=== PATIENT | female | born 1960 | race Caucasian/White ===

== ENCOUNTER 2016-10-14 09:49 | Emergency (ER) | payer BC, OTHER ==
[~2016-10-14] VITALS: Ht 167.6 cm; Wt 85.1 kg
[~2016-10-14 09:49] MED LIST: ADDE20 PO; IBUP-238 PO; LEVO112T2 PO; METO50TA PO
[2016-10-14 09:59] VITALS: BP 154/93; PULSE 90; RESP 16; TEMP 97.7; O2SAT 100
--- NOTE | 2016-10-14 10:43 | PD ---
HPI Chief Complaint: Headache Time Seen by Provider: 10:16 Travel History International Travel<30 days: Yes Contact w/Intl Traveler<30days: [place] Traveled to: [place] Traveled to known affect area: No History of Present Illness HPI This 56-year-old female says she been feeling somewhat lethargic and having fever. She has had fever as high as 101.5. She had some headache. She had some myalgias. 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 She believes she did not always have gloves on when she was dealing with the dogs. She also had a trip to [place]. She does have a history of hypothyroidism and is on replacement therapy. [facility] Past Medical History ADD: Yes Atrial Fibrillation: Yes Integumentary: Yes (ECZEMA) Thyroid Disease: Yes Influenza Vaccination: No ?: Not Menopausal: Yes Past Surgical History Appendectomy: Yes Hysterectomy: Yes Other Surgery: Yes (spinal fusion) Social History Alcohol Use: Yes ("COUPLE TIMES PER WEEK") Tobacco Use: No Substance Use: No Allergies-Medications (Allergen,Severity, Reaction): Coded Allergies: Compazine (Unverified Allergy, Severe, 11/02/15) Latex (Unverified Allergy, Severe, 11/02/15) Reglan (Unverified Allergy, Severe, 11/02/15) Zofran (Unverified Adverse Reaction, Unknown, Headache, 11/02/15) Reported Meds & Prescriptions Reported Meds & Active Scripts Active Motrin (Ibuprofen) 800 Mg Tab 800 Mg PO TID PRN Reported Levothyroxine 112 mcg (Levothyroxine Sodium) 112 Mcg Tab 0 PO DAILY Metoprolol Tartrate 50 mg (Metoprolol Tartrate) 50 Mg Tab 50 Mg PO BID Adderall 20 mg (Dextroamphetamine/Amphetamine) 20 Mg Tab 20 Mg PO TID Review of Systems General / Constitutional: Positive: Fever, Chills Eyes: No: Diploplia, Blurred Vision HENT: Positive: Headaches, No: Vertigo Cardiovascular: No: Chest Pain or Discomfort, Palpitations Respiratory: No: Cough, Shortness of Breath Gastrointestinal: No: Nausea Genitourinary: No: Urgency, Frequency Musculoskeletal: Positive: Myalgias Skin: No Rash Neurologic: Positive: Weakness Physical Exam Narrative GENERAL: Well-developed female SKIN: Warm and dry. HEAD: Atraumatic. Normocephalic. EYES: Pupils equal and round. No scleral icterus. No injection or drainage. ENT: No nasal bleeding or discharge. Mucous membranes pink and moist. NECK: Trachea midline. No JVD. CARDIOVASCULAR: Regular rate and rhythm. No murmur appreciated. RESPIRATORY: No accessory muscle use. Clear to auscultation. Breath sounds equal bilaterally. GASTROINTESTINAL: Abdomen soft, non-tender, nondistended. Hepatic and splenic margins not palpable. MUSCULOSKELETAL: No obvious deformities. No clubbing. No cyanosis. No edema. NEUROLOGICAL: Awake and alert. No obvious cranial nerve deficits. Motor grossly within normal limits. Normal speech. PSYCHIATRIC: Appropriate mood and affect; insight and judgment normal. Data Data Last Documented VS Vital Signs Date Time Temp Pulse Resp B/P Pulse Ox O2 Delivery O2 Flow Rate FiO2 10/14/16 09:59 97.7 90 16 154/93 100 Room Air Orders Complete Blood Count With Diff (10/14/16 10:33) Comprehensive Metabolic Panel (10/14/16 10:33) Urinalysis - C+S If Indicated (10/14/16 10:33) Influenzae A/B Antigen (10/14/16 10:33) Thyroid Stimulating Hormone (10/14/16 10:34) Doxycycline (Vibramycin) (10/14/16 10:45) Micro Type In (10/14/16 11:12) Labs Laboratory Tests Test 10/14/16 10:45 White Blood Count 5.8 TH/MM3 Red Blood Count 4.59 MIL/MM3 Hemoglobin 13.5 GM/DL Hematocrit 39.3 % Mean Corpuscular Volume 85.8 FL Mean Corpuscular Hemoglobin 29.5 PG Mean Corpuscular Hemoglobin 34.4 % Concent Red Cell Distribution Width 11.9 % Platelet Count 364 TH/MM3 Mean Platelet Volume 7.8 FL Neutrophils (%) (Auto) 52.6 % Lymphocytes (%) (Auto) 34.4 % Monocytes (%) (Auto) 9.5 % Eosinophils (%) (Auto) 2.8 % Basophils (%) (Auto) 0.7 % Neutrophils # (Auto) 3.0 TH/MM3 Lymphocytes # (Auto) 2.0 TH/MM3 Monocytes # (Auto) 0.6 TH/MM3 Eosinophils # (Auto) 0.2 TH/MM3 Basophils # (Auto) 0.0 TH/MM3 CBC Comment DIFF FINAL Differential Comment Urine Collection Type CLEAN CATCH Urine Color YELLOW Urine Turbidity SLIGHT Urine pH 5.5 Urine Specific [place] 1.020 Urine Protein NEG mg/dL Urine Glucose (UA) NEG mg/dL Urine Ketones NEG mg/dL Urine Occult Blood NEG Urine Nitrite NEG Urine Bilirubin NEG Urine Leukocyte Esterase NEG Urine Squamous Epithelial > 8 /hpf Cells Urine Amorphous Sediment FEW Microscopic Urinalysis Comment CULT NOT INDICATED Urine Collection Time 145 Sodium Level 139 MEQ/L Potassium Level 4.1 MEQ/L Chloride Level 105 MEQ/L Carbon Dioxide Level 24.4 MEQ/L Anion Gap 10 MEQ/L Blood Urea Nitrogen 18 MG/DL Creatinine 0.61 MG/DL Estimat Glomerular Filtration 102 ML/MIN Rate Random Glucose 91 MG/DL Calcium Level 8.8 MG/DL Total Bilirubin 0.4 MG/DL Aspartate Amino Transf 21 U/L (AST/SGOT) Alanine Aminotransferase 21 U/L (ALT/SGPT) Alkaline Phosphatase 75 U/L Total Protein 7.3 GM/DL Albumin 3.8 GM/DL Thyroid Stimulating Hormone 0.657 uIU/ML 3rd Gen [facility] Medical Decision Making Medical Screen Exam Complete: Yes Emergency Medical Condition: Yes Medical Record Reviewed: Yes Differential Diagnosis Differential includes UTI, hypothyroidism, leptospirosis, influenza Narrative Course For leptospirosis has been ordered. Her tests for influenza is negative. Liver function tests and urinalysis are negative. Patient did have exposure to leptospirosis and recommendations are to treat pending laboratory confirmation. I will start her on doxycycline 100 twice a day Diagnosis Primary Impression: leptospirosis exposure Additional Impression: Febrile illness, acute Scripts Doxycycline Hyclate 100 Mg [id number] Mg PO BID #20 CAP Prov:Paulo Christopher MD 10/14/16 Disposition: 01 DISCHARGE HOME Condition: Stable Paulo Christopher MD Oct 14, 2016 10:43
[2016-10-14] MEDS ORDERED: DOXYCYCLINE HYCLATE 100 MG CAP PO ONE (10:45)
[2016-10-14 11:00] LABS: BASOPHIL % 0.7 % (0.0-2.0); EOSINOPHIL # 0.2 TH/MM3 (0-0.4); EOSINOPHIL % 2.8 % (0.0-4.0); HEMATOCRIT 39.3 % (35.0-46.0); HEMO FLAGS DIFF FINAL; LYMPH % 34.4 % (9.0-44.0); MEAN CELL VOLUME 85.8 FL (80.0-100.0); MEAN CORPUSCULAR HEMOGLOBIN 29.5 PG (27.0-34.0); MEAN CORPUSCULAR HGB CONC 34.4 % (32.0-36.0); MONO % 9.5 % (0.0-8.0); NEUT % 52.6 % (16.0-70.0); PLATELET COUNT 364 TH/MM3 (150-450); RED BLOOD COUNT 4.59 MIL/MM3 (4.00-5.30); RED CELL DISTRIBUTION WIDTH 11.9 % (11.6-17.2); WHITE BLOOD COUNT 5.8 TH/MM3 (4.0-11.0)
[2016-10-14 11:02] LABS: BLOOD, URINE NEG (NEG); GLUCOSE,URINE NEG (NEG); KETONE, URINE NEG (NEG); NITRITE,URINE NEG (NEG); PH, URINE 5.5 (5.0-8.5)
[2016-10-14 11:10] LABS: COMMENT (UR) CULT NOT INDICATED; COMMENT2 (UR) MUCOUS PRESENT; CULTURE IF INDICATED CULT NOT INDICATED; METHOD OF COLLECTION CLEAN CATCH; SQUAMOUS EPITHELIAL CELL URINE > 8 /hpf (0-5); URINE COLOR YELLOW (YELLW/STRAW)
[2016-10-14 11:11] LABS: CHLORIDE 105 MEQ/L (98-107); POTASSIUM 4.1 MEQ/L (3.5-5.1); SODIUM (NA) 139 MEQ/L (136-145)
[2016-10-14 11:15] LABS: ANION GAP 10 MEQ/L (5-15); BICARBONATE 24.4 MEQ/L (21.0-32.0); BLOOD UREA NITROGEN 18 MG/DL (7-18)
[2016-10-14 11:18] LABS: ALT (GPT) 21 U/L (10-53); AST (GOT) 21 U/L (15-37); GLOMERULAR FILTRATION RATE 102 ML/MIN (>89)
[2016-10-14 11:19] LABS: TOTAL BILIRUBIN ADULT 0.4 MG/DL (0.2-1.0)
[2016-10-14 11:21] LABS: ALKALINE PHOSPHATASE 75 U/L (45-117)
[2016-10-14] MEDS ORDERED: DOXY100C PO (11:48)
== END 2016-10-14 11:59 | disposition home or self-care (01) ==
LOC: PHED 09:49
DX: R51 Headache (principal); R50.9 Fever, unspecified; E03.9 Hypothyroidism, unspecified; Z20.818 Contact with and (suspected) exposure to other bacterial communicable diseases
CPT/HCPCS: 80053; 81001; 84443; 85025; 87804; 99284

== ENCOUNTER 2016-10-23 12:48 | Inpatient (IN) | payer BC, OTHER ==
[~2016-10-23] VITALS: Ht 167.6 cm; Wt 85.0 kg
[~2016-10-23 12:48] MED LIST changes: +DOXY100C PO
[2016-10-23 12:50] VITALS: BP 138/92; PULSE 107; RESP 20; TEMP 98.4; O2SAT 99
--- NOTE | 2016-10-23 14:13 | PD ---
HPI Chief Complaint: GI Complaint Time Seen by Provider: 14:06 Travel History International Travel<30 days: No Contact w/Intl Traveler<30days: No Traveled to known affect area: No History of Present Illness HPI Patient is a 56-year-old female presenting to the emergency department for evaluation of fever, chills, abdominal cramping, eye pain, headaches. 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 Patient went to [facility] in [place] on 10/14/16 due to a febrile illness, at that time leptospira IgM was sent to [facility]. Patient was started on doxycycline empirically at that time. Notified that the blood test came back borderline. Patient has been compliant with the doxycycline since that time however she states she is not getting any better she has lost 3 pounds continues to have headaches, and flulike symptoms. She went to her primary care provider's office this morning who advised her to return to the emergency department for further evaluation. [facility] Past Medical History ADD: Yes Atrial Fibrillation: Yes Integumentary: Yes (ECZEMA) Thyroid Disease: Yes ?: Not Menopausal: Yes Past Surgical History Appendectomy: Yes Hysterectomy: Yes Other Surgery: Yes (spinal fusion) Social History Alcohol Use: Yes ("COUPLE TIMES PER WEEK") Tobacco Use: No Substance Use: No Allergies-Medications (Allergen,Severity, Reaction): Coded Allergies: Compazine (Unverified Allergy, Severe, 11/02/15) Latex (Unverified Allergy, Severe, 11/02/15) Reglan (Unverified Allergy, Severe, 11/02/15) Zofran (Unverified Adverse Reaction, Unknown, Headache, 11/02/15) Reported Meds & Prescriptions Reported Meds & Active Scripts Active Doxycycline Hyclate 100 Mg Cap 100 Mg PO BID Reported Levothyroxine (Levothyroxine Sodium) 112 Mcg Tab 112 Mcg PO DAILY Provigil (Modafinil) 200 Mg Tab 200 Mg PO DIRECTED Review of Systems Except as stated in HPI: all other systems reviewed are Neg General / Constitutional: Positive: Fever, Chills Eyes: Positive: Pain HENT: Positive: Headaches Cardiovascular: Positive: Tachycardia, No: Chest Pain or Discomfort Respiratory: No: Shortness of Breath Gastrointestinal: Positive: Nausea, Abdominal Pain, Loss of Appetite Musculoskeletal: Positive: Myalgias Neurologic: No: Focal Abnormalities Physical Exam Narrative GENERAL: Well-developed, well-nourished, alert female. Resting comfortably in no acute distress. SKIN: Warm and dry. HEAD: Atraumatic. Normocephalic. EYES: Pupils equal and round. No scleral icterus. Mild injection, no drainage. ENT: No nasal bleeding or discharge. Mucous membranes pink and moist. NECK: Trachea midline. No JVD. CARDIOVASCULAR: Tachycardic. No murmur appreciated. RESPIRATORY: No accessory muscle use. Clear to auscultation. Breath sounds equal bilaterally. GASTROINTESTINAL: Abdomen soft, tender to palpation diffusely, more so in the lower quadrants, nondistended. Hepatic and splenic margins not palpable. Positive bowel sounds. MUSCULOSKELETAL: No obvious deformities. No clubbing. No cyanosis. No edema. NEUROLOGICAL: Awake and alert. No obvious cranial nerve deficits. Motor grossly within normal limits. Normal speech. PSYCHIATRIC: Appropriate mood and affect; insight and judgment normal. Data Data Last Documented VS Vital Signs Date Time Temp Pulse Resp B/P Pulse Ox O2 Delivery O2 Flow Rate FiO2 10/23/16 17:04 98.7 94 20 136/99 99 Room Air Orders Electrocardiogram (10/23/16 14:05) Complete Blood Count With Diff (10/23/16 14:05) Comprehensive Metabolic Panel (10/23/16 14:05) Prothrombin Time / Inr (Pt) (10/23/16 14:05) Act Partial Throm Time (Ptt) (10/23/16 14:05) Lactic Acid Sepsis Protocol (10/23/16 14:05) Magnesium (Mg) (10/23/16 14:05) Ckmb (Isoenzyme) Profile (10/23/16 14:05) Troponin I (10/23/16 14:05) Urinalysis - C+S If Indicated (10/23/16 14:05) Blood Culture (10/23/16 14:05) Chest, Single Ap (10/23/16 ) Sodium Chlor 0.9% 1000 Ml Inj (Ns 1000 M (10/23/16 17:45) Ketorolac Inj (Toradol Inj) (10/23/16 17:45) Diet Regular Basic (10/23/16 Dinner) Vital Signs (Adult) ADELAIDA.Q4H (10/23/16 17:52) Acetaminophen (Tylenol) (10/23/16 18:00) Vascular Access Team Consult PRN (10/23/16 18:06) Admit Order (Ed Use Only) (10/23/16 18:13) Penicillin G Sodium Inj (Penicillin G So (10/24/16 00:00) Consult Infectious Disease (10/23/16 ) Levothyroxine (Synthroid) (10/24/16 06:00) Vascular Poc Ultrasound (10/23/16 ) (Hub Use Only)Inp Phy Cons/Ref (10/23/16 ) Admit To Inpatient (10/23/16 ) Vital Signs (Adult) Q4H (10/23/16 18:36) Activity Oob With Assistance (10/23/16 18:36) Sodium Chloride 0.9% Flush (Ns Flush) (10/23/16 18:45) Sodium Chloride 0.9% Flush (Ns Flush) (10/23/16 21:00) Basic Metabolic Panel (Bmp) (10/24/16 06:00) Complete Blood Count With Diff (10/24/16 06:00) Scd Bilateral/Knee High ADELAIDA.BID (10/23/16 18:36) Naloxone Inj (Narcan Inj) (10/23/16 18:45) Inpatient Certification (10/23/16 ) Aspirin Ec (Ecotrin Ec) (10/24/16 09:00) Penicillin G Potassium Inj (Pfizerpen-G (10/23/16 19:07) Labs Laboratory Tests Test 10/23/16 14:35 White Blood Count 5.7 TH/MM3 Red Blood Count 5.15 MIL/MM3 Hemoglobin 15.1 GM/DL Hematocrit 44.6 % Mean Corpuscular Volume 86.7 FL Mean Corpuscular Hemoglobin 29.3 PG Mean Corpuscular Hemoglobin 33.8 % Concent Red Cell Distribution Width 12.8 % Platelet Count 353 TH/MM3 Mean Platelet Volume 7.7 FL Neutrophils (%) (Auto) 61.0 % Lymphocytes (%) (Auto) 27.6 % Monocytes (%) (Auto) 8.9 % Eosinophils (%) (Auto) 1.2 % Basophils (%) (Auto) 1.3 % Neutrophils # (Auto) 3.5 TH/MM3 Lymphocytes # (Auto) 1.6 TH/MM3 Monocytes # (Auto) 0.5 TH/MM3 Eosinophils # (Auto) 0.1 TH/MM3 Basophils # (Auto) 0.1 TH/MM3 CBC Comment DIFF FINAL Differential Comment Sodium Level 141 MEQ/L Potassium Level 4.1 MEQ/L Chloride Level 104 MEQ/L Carbon Dioxide Level 24.1 MEQ/L Anion Gap 13 MEQ/L Blood Urea Nitrogen 12 MG/DL Creatinine 0.66 MG/DL Estimat Glomerular Filtration 93 ML/MIN Rate Random Glucose 91 MG/DL Lactic Acid Level 0.9 mmol/L Calcium Level 9.5 MG/DL Magnesium Level 1.9 MG/DL Total Bilirubin 0.4 MG/DL Aspartate Amino Transf 17 U/L (AST/SGOT) Alanine Aminotransferase 24 U/L (ALT/SGPT) Alkaline Phosphatase 87 U/L Total Creatine Kinase 64 U/L Troponin I LESS THAN 0.02 NG/ML Total Protein 7.9 GM/DL Albumin 4.3 GM/DL MDM Medical Decision Making Medical Screen Exam Complete: Yes Emergency Medical Condition: Yes Interpretation(s) Vital Signs Date Time Temp Pulse Resp B/P Pulse Ox O2 Delivery O2 Flow Rate FiO2 10/23/16 12:50 98.4 107 20 138/92 99 Differential Diagnosis Sepsis versus leptospirosis versus gastroenteritis versus viral syndrome versus other Narrative Course Patient is a 56-year-old female who presents emergency Department due to failing outpatient therapy for leptospirosis exposure. Patient did have a positive, borderline test result that was drawn on October 142016. She was started on doxycycline and has been compliant but has not had any improvement in her initial symptoms. Labs, EKG, chest x-ray ordered and pending. Workup initiated in triage, care patient will be transferred to provider with a medical bed is available. Ginger Naik Oct 23, 2016 14:13
[2016-10-23 15:15] LABS: AUTOMATED NEUTROPHIL # 3.5 TH/MM3 (1.8-7.7); BASOPHIL # 0.1 TH/MM3 (0-0.2); BASOPHIL % 1.3 % (0.0-2.0); EOSINOPHIL # 0.1 TH/MM3 (0-0.4); EOSINOPHIL % 1.2 % (0.0-4.0); HEMATOCRIT 44.6 % (35.0-46.0); HEMO FLAGS DIFF FINAL; LYMPH % 27.6 % (9.0-44.0); LYMPHOCYTE # 1.6 TH/MM3 (1.0-4.8); MEAN CELL VOLUME 86.7 FL (80.0-100.0); MEAN CORPUSCULAR HEMOGLOBIN 29.3 PG (27.0-34.0); MEAN CORPUSCULAR HGB CONC 33.8 % (32.0-36.0); MONO % 8.9 % (0.0-8.0); PLATELET COUNT 353 TH/MM3 (150-450); RED BLOOD COUNT 5.15 MIL/MM3 (4.00-5.30); RED CELL DISTRIBUTION WIDTH 12.8 % (11.6-17.2); WHITE BLOOD COUNT 5.7 TH/MM3 (4.0-11.0)
[2016-10-23 15:24] LABS: ALKALINE PHOSPHATASE 87 U/L (45-117); ALT (GPT) 24 U/L (10-53); ANION GAP 13 MEQ/L (5-15); AST (GOT) 17 U/L (15-37); BICARBONATE 24.1 MEQ/L (21.0-32.0); BLOOD UREA NITROGEN 12 MG/DL (7-18); CHLORIDE 104 MEQ/L (98-107); GLOMERULAR FILTRATION RATE 93 ML/MIN (>89); MAGNESIUM 1.9 MG/DL (1.5-2.5); POTASSIUM 4.1 MEQ/L (3.5-5.1); SODIUM (NA) 141 MEQ/L (136-145); TOTAL BILIRUBIN ADULT 0.4 MG/DL (0.2-1.0)
[2016-10-23 15:25] LABS: CREATINE KINASE 64 U/L (26-192)
--- NOTE | 2016-10-23 15:29 | RADRPT ---
EXAM DATE/TIME: 10/23/2016 14:49 [place] COMPARISON: CT PULMONARY ANGIOGRAM, December 23, 2014, 12:36. CHEST SINGLE AP, December 23, 2014, 10:42. INDICATIONS : Fever. MEDICAL HISTORY : has leptospirosis from a dog SURGICAL HISTORY : None. ENCOUNTER: Initial ACUITY: 1 day PAIN SCORE: 0/10 LOCATION: Bilateral chest FINDINGS: 2 frontal views of the chest demonstrate a normal-sized cardiac silhouette. No effusion, consolidatio n, or pneumothorax is identified. Bones and soft tissues demonstrate no acute finding. Bilateral dev st implants are present. CONCLUSION: No acute cardiopulmonary abnormality is identified. Dirk Siddiqi MD on October 23, 2016 at 15:25 Board Certified Radiologist. This report was verified electronically.
[2016-10-23] MEDS ORDERED: PROV200T11 PO (17:01)
[2016-10-23 17:04] VITALS: BP 136/99; PULSE 94; RESP 20; TEMP 98.7; O2SAT 99
[2016-10-23] MEDS ORDERED: SODIUM CHLOR 0.9% 1000 ML INJ 1,000 ML IV ONE (17:45)
[2016-10-23] MEDS ORDERED: KETOROLAC TROMETHAMINE 30 MG/ML (IVP) VIAL IV PUSH ONE (17:45)
[2016-10-23] MEDS ORDERED: PENICILLIN SODIUM IV SCH (17:45)
[2016-10-23] MEDS ORDERED: SODIUM CHLORIDE 0.9% IV SCH (17:45)
[2016-10-23] MEDS ORDERED: LEVO112T2 PO (18:14)
--- NOTE | 2016-10-23 18:40 | PD ---
Physical Exam Date Seen by Provider: Oct 23, 2016 Data Data Last Documented VS Vital Signs Date Time Temp Pulse Resp B/P Pulse Ox O2 Delivery O2 Flow Rate FiO2 10/23/16 17:04 98.7 94 20 136/99 99 Room Air Orders Electrocardiogram (10/23/16 14:05) Complete Blood Count With Diff (10/23/16 14:05) Comprehensive Metabolic Panel (10/23/16 14:05) Prothrombin Time / Inr (Pt) (10/23/16 14:05) Act Partial Throm Time (Ptt) (10/23/16 14:05) Lactic Acid Sepsis Protocol (10/23/16 14:05) Magnesium (Mg) (10/23/16 14:05) Ckmb (Isoenzyme) Profile (10/23/16 14:05) Troponin I (10/23/16 14:05) Urinalysis - C+S If Indicated (10/23/16 14:05) Blood Culture (10/23/16 14:05) Chest, Single Ap (10/23/16 ) Penicillin G Sodium Inj (Penicillin G So (10/23/16 17:45) Sodium Chlor 0.9% 1000 Ml Inj (Ns 1000 M (10/23/16 17:45) Ketorolac Inj (Toradol Inj) (10/23/16 17:45) Diet Regular Basic (10/23/16 Dinner) Vital Signs (Adult) ADELAIDA.Q4H (10/23/16 17:52) Acetaminophen (Tylenol) (10/23/16 18:00) Vascular Access Team Consult PRN (10/23/16 18:06) Admit Order (Ed Use Only) (10/23/16 18:13) Penicillin G Sodium Inj (Penicillin G So (10/24/16 00:00) Consult Infectious Disease (10/23/16 ) Levothyroxine (Synthroid) (10/24/16 06:00) Vascular Poc Ultrasound (10/23/16 ) (Hub Use Only)Inp Phy Cons/Ref (10/23/16 ) Labs Laboratory Tests Test 10/23/16 14:35 White Blood Count 5.7 TH/MM3 Red Blood Count 5.15 MIL/MM3 Hemoglobin 15.1 GM/DL Hematocrit 44.6 % Mean Corpuscular Volume 86.7 FL Mean Corpuscular Hemoglobin 29.3 PG Mean Corpuscular Hemoglobin 33.8 % Concent Red Cell Distribution Width 12.8 % Platelet Count 353 TH/MM3 Mean Platelet Volume 7.7 FL Neutrophils (%) (Auto) 61.0 % Lymphocytes (%) (Auto) 27.6 % Monocytes (%) (Auto) 8.9 % Eosinophils (%) (Auto) 1.2 % Basophils (%) (Auto) 1.3 % Neutrophils # (Auto) 3.5 TH/MM3 Lymphocytes # (Auto) 1.6 TH/MM3 Monocytes # (Auto) 0.5 TH/MM3 Eosinophils # (Auto) 0.1 TH/MM3 Basophils # (Auto) 0.1 TH/MM3 CBC Comment DIFF FINAL Differential Comment Sodium Level 141 MEQ/L Potassium Level 4.1 MEQ/L Chloride Level 104 MEQ/L Carbon Dioxide Level 24.1 MEQ/L Anion Gap 13 MEQ/L Blood Urea Nitrogen 12 MG/DL Creatinine 0.66 MG/DL Estimat Glomerular Filtration 93 ML/MIN Rate Random Glucose 91 MG/DL Lactic Acid Level 0.9 mmol/L Calcium Level 9.5 MG/DL Magnesium Level 1.9 MG/DL Total Bilirubin 0.4 MG/DL Aspartate Amino Transf 17 U/L (AST/SGOT) Alanine Aminotransferase 24 U/L (ALT/SGPT) Alkaline Phosphatase 87 U/L Total Creatine Kinase 64 U/L Troponin I LESS THAN 0.02 NG/ML Total Protein 7.9 GM/DL Albumin 4.3 GM/DL [facility] Medical Record Reviewed: Yes Supervised Visit with REED: Yes Narrative Course I, Dr. Anderson, have reviewed the advance practice practitioner's documentation and am in agreement, met with the patient face to face, made the diagnosis, and the medical decision making was done by me. 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 Patient reports that since then, she has been having headaches, nausea vomiting diarrhea and high fevers. Patient did go to [facility] and was seen on October 14, 2016 and Leptospira IgM was sent out to the [facility]. Patient reports that she was started on doxycycline and was called recently about the leptospirosis antibodies being positive. Patient reports that she is not feeling better, reports that she continues to have nausea vomiting diarrhea, myalgias and headaches. Patient did see her primary care doctor this morning, Dr. Pearson, she was told to go to the ER for admission and for treatment with IV antibiotics. Patient with symptomatic leptospirosis. Patient started on pen G1.5 million IV. Case was reviewed with Dr. Delgadillo who accepts pt to service. Physician Communication Physician Communication Case reviewed with Dr. Delgadillo who accepts pt to service Diagnosis Primary Impression: Leptospirosis Admitting Information Admitting Physician Requests: Admit Maddie Anderson DO Oct 23, 2016 18:40
--- NOTE | 2016-10-23 18:44 | HHI.HP ---
HPI Service [facility] Hospitalists Primary Care Physician Unknown Admission Diagnosis Leptospirosis Diagnoses: Chief Complaint: diarrhea, abdominal cramps, eye pain, fevers not improved with doxycycline PO Travel History International Travel<30 Days: Yes Contact w/Intl Traveler <30 Da: Yes Name of Country Traveled to: [place] Traveled to Known Affected Are: No History of Present Illness Patient is a 56-year-old female with a past medical history which includes hypothyroidism. Patient presenting to the emergency department for evaluation of fever, chills, abdominal cramping, diarrhea, lack of appetite, eye pain, headaches. 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 Patient went to [facility] in [place] on 10/14/16 due to a febrile illness, at that time leptospira IgM was sent to [facility]. Patient was started on doxycycline empirically at that time. Has taken doxycycline PO x 9 days and reports no improvement of symptoms. Patient' s IgM leptospirosis blood test resulted as borderline. Patient has lost 3 pounds in the past week, decreased appetite continued diarrhea also continues to have headaches, and polyuria. Denies dysuria. She went to her primary care provider's office this morning who advised her to return to the emergency department for further evaluation. Patient has also traveled to [place] a little over a month ago. Patient denies chest pain, shortness of breath. Review of Systems Except as stated in HPI: all other systems reviewed are Neg Past Family Social History Past Medical History Hypothyroidism Past Surgical History Appendectomy, hysterectomy, breast augmentation, benign cyst removed from right breast, spinal fusion C3 through C4 Reported Medications Doxycycline Hyclate 100 Mg Cap 100 Mg PO BID Levothyroxine (Levothyroxine Sodium) 112 Mcg Tab 112 Mcg PO DAILY Provigil (Modafinil) 200 Mg Tab 200 Mg PO DIRECTED Allergies: Coded Allergies: Compazine (Unverified Allergy, Severe, 11/02/15) Latex (Unverified Allergy, Severe, 11/02/15) Reglan (Unverified Allergy, Severe, 11/02/15) Zofran (Unverified Adverse Reaction, Unknown, Headache, 11/02/15) Active Ordered Medications Current Medications Medications (Trade) Dose Ordered Sig/[place] Route Start Time Stop Time Status Last Admin Penicillin G Sodium [id number] units/Sodium Chloride 50 ml @ 100 mls/hr ONCE IV 10/23/16 17:45 (NS 1000 ml Inj) 1,000 ml @ 999 mls/hr BOLUS ONCE IV 10/23/16 17:45 10/23/16 18:45 (Tylenol) 650 mg Q4H PRN PO 10/23/16 18:00 UNV Family History mother and father both had CVA Social History Patient reports occasional EtOH use Patient does not smoke cigarettes but does chew nicotine gum Physical Exam Vital Signs Vital Signs Date Time Temp Pulse Resp B/P Pulse Ox O2 Delivery O2 Flow Rate FiO2 10/23/16 17:04 98.7 94 20 136/99 99 Room Air 10/23/16 12:50 98.4 107 20 138/92 99 Physical Exam GENERAL: This is a well-nourished, well-developed patient, appears uncomfortable but in no apparent distress. SKIN: Bilateral upper extremity excoriations in various stages of healing and ecchymotic areas EYES: Extraocular motions intact. No scleral icterus. No injection or drainage. ENT: Nose without bleeding, purulent drainage or septal hematoma. Throat without erythema, tonsillar hypertrophy or exudate. Uvula midline. Airway patent. CARDIOVASCULAR: Regular rate and rhythm without murmurs, gallops, or rubs. RESPIRATORY: Clear to auscultation. Breath sounds equal bilaterally. No wheezes , rales, or rhonchi. GASTROINTESTINAL: Abdomen soft, non-tender, nondistended. No hepato-splenomegaly , or palpable masses. No guarding. MUSCULOSKELETAL: Extremities without clubbing, cyanosis, or edema. No joint tenderness, effusion, or edema noted. No calf tenderness. Negative Homans sign bilaterally. NEUROLOGICAL: Awake and alert. No focal deficits. Motor and sensory grossly within normal limits. Five out of 5 muscle strength in all muscle groups. Normal speech. Laboratory Laboratory Tests Test 10/23/16 14:35 White Blood Count 5.7 Red Blood Count 5.15 Hemoglobin 15.1 Hematocrit 44.6 Mean Corpuscular Volume 86.7 Mean Corpuscular Hemoglobin 29.3 Mean Corpuscular Hemoglobin 33.8 Concent Red Cell Distribution Width 12.8 Platelet Count 353 Mean Platelet Volume 7.7 Neutrophils (%) (Auto) 61.0 Lymphocytes (%) (Auto) 27.6 Monocytes (%) (Auto) 8.9 Eosinophils (%) (Auto) 1.2 Basophils (%) (Auto) 1.3 Neutrophils # (Auto) 3.5 Lymphocytes # (Auto) 1.6 Monocytes # (Auto) 0.5 Eosinophils # (Auto) 0.1 Basophils # (Auto) 0.1 CBC Comment DIFF FINAL Differential Comment Sodium Level 141 Potassium Level 4.1 Chloride Level 104 Carbon Dioxide Level 24.1 Anion Gap 13 Blood Urea Nitrogen 12 Creatinine 0.66 Estimat Glomerular Filtration 93 Rate Random Glucose 91 Lactic Acid Level 0.9 Calcium Level 9.5 Magnesium Level 1.9 Total Bilirubin 0.4 Aspartate Amino Transf 17 (AST/SGOT) Alanine Aminotransferase 24 (ALT/SGPT) Alkaline Phosphatase 87 Total Creatine Kinase 64 Troponin I LESS THAN 0.02 Total Protein 7.9 Albumin 4.3 Date/Time Procedure Status Source Growth 10/23/16 14:35 Aerobic Blood Culture Received Blood Peripheral Pending 10/23/16 14:35 Anaerobic Blood Culture Received Blood Peripheral Pending Result Diagram: 10/23/16 1435 10/23/16 1435 Imaging Last Impressions Chest X-Ray 10/23/16 0000 Signed Impressions: Service Date/Time: Sunday, October 23, 2016 14:49 - CONCLUSION: No acute cardiopulmonary abnormality is identified. Dirk Siddiqi MD Assessment and Plan Assessment and Plan Patient is a 56-year-old female with a past medical history which includes hypothyroidism. Patient presenting to the emergency department for evaluation of fever, chills, abdominal cramping, diarrhea, eye pain, headaches. 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 Patient went to [facility] in [place] on 10/14/16 due to a febrile illness, at that time leptospira IgM was sent to [facility]. Patient was started on doxycycline empirically at that time. Has taken doxycycline PO x 9 days and reports no improvement of symptoms. Patient's IgM leptospirosis blood test resulted as borderline. leptospirosis- Penicillin G IV Q6H Consult ID hypothyroidism- continue Levothyroxine 112mcg daily Headache- acetaminophen as needed Hx of paroxysmal atrial fibrillation-currently in sinus rhythm continue aspirin 162 mg daily per cardiology recommendations 2015 DVT prophylaxis with SCDs Discussed with her provider, nursing and patient Written by Tatianna Sanders, acting as scribe for Dr. Arrington on 10/23/16 at 18:43. patient was seen and examined today. presented with fever, body ache,nausea,vomiting and diarrhea. will start IV antibiotic for possible leptospirosis. ID will be consulted. rest of assessment and plan as noted above. Physician Certification 2 Midnight Certification Type: Admission for Inpatient Services Order for Inpatient Services The services are ordered in accordance with Medicare regulations or non- Medicare payer requirements, as applicable. In the case of services not specified as inpatient-only, they are appropriately provided as inpatient services in accordance with the 2-midnight benchmark. Estimated LOS (days): 3 days is the estimated time the patient will need to remain in the hospital, assuming treatment plan goals are met and no additional complications. Post-Hospital Plan: Home Tatianna Sanders Oct 23, 2016 18:44 Patito Arrington MD Oct 23, 2016 18:46
[2016-10-23] MEDS ORDERED: NALOXONE HCL 0.4 MG/ML AMP IV PRN (18:45)
[2016-10-23] MEDS ORDERED: PENICILLIN POTASSIUM IV ONE (19:07)
[2016-10-23] MEDS ORDERED: SODIUM CHLORIDE 0.9% IV ONE (19:07)
[2016-10-23 19:37] LABS: PROTHROMBIN TIME - PATIENT 11.2 SEC (9.8-11.6)
[2016-10-23] MEDS: SODIUM CHLORIDE 0.9% FLUSH 5 ML FLUSH FLUSH SCH (21:00)
[2016-10-23 21:53] VITALS: BP 118/84; PULSE 73; RESP 16; O2SAT 99
[2016-10-23 22:57] VITALS: BP 131/85; PULSE 84; RESP 18; TEMP 98.9; O2SAT 99
[2016-10-24] MEDS ORDERED: SODIUM CHLORIDE 0.9% IV SCH (01:00)
[2016-10-24] MEDS ORDERED: PENICILLIN POTASSIUM IV SCH (01:00)
[2016-10-24] MEDS: PENICILLIN POTASSIUM IV SCH ×2 (01:09→06:59)
[2016-10-24] MEDS: SODIUM CHLORIDE 0.9% IV SCH ×2 (01:09→06:59)
[2016-10-24] MEDS: SODIUM CHLORIDE 0.9% FLUSH 5 ML FLUSH FLUSH PRN ×2 (01:09→06:59)
[2016-10-24 04:00] VITALS: BP 112/64; PULSE 78; RESP 16; TEMP 96.6; O2SAT 98
[2016-10-24] MEDS: LEVOTHYROXINE SODIUM 112 MCG TAB PO SCH (05:45)
[2016-10-24] MEDS: ACETAMINOPHEN 325 MG TAB PO PRN (05:45)
[2016-10-24 06:14] LABS: AUTOMATED NEUTROPHIL # 2.6 TH/MM3 (1.8-7.7); BASOPHIL # 0.1 TH/MM3 (0-0.2); BASOPHIL % 1.3 % (0.0-2.0); EOSINOPHIL # 0.1 TH/MM3 (0-0.4); EOSINOPHIL % 2.8 % (0.0-4.0); HEMATOCRIT 37.6 % (35.0-46.0); HEMO FLAGS DIFF FINAL; LYMPH % 32.1 % (9.0-44.0); LYMPHOCYTE # 1.7 TH/MM3 (1.0-4.8); MEAN CELL VOLUME 86.6 FL (80.0-100.0); MEAN CORPUSCULAR HEMOGLOBIN 30.2 PG (27.0-34.0); MEAN CORPUSCULAR HGB CONC 34.9 % (32.0-36.0); MONO % 13.3 % (0.0-8.0); NEUT % 50.5 % (16.0-70.0); PLATELET COUNT 292 TH/MM3 (150-450); RED BLOOD COUNT 4.34 MIL/MM3 (4.00-5.30); RED CELL DISTRIBUTION WIDTH 12.7 % (11.6-17.2); WHITE BLOOD COUNT 5.2 TH/MM3 (4.0-11.0)
[2016-10-24 06:26] LABS: POTASSIUM 4.1 MEQ/L (3.5-5.1)
[2016-10-24 08:00] VITALS: BP 129/75; PULSE 74; RESP 19; TEMP 96.5; O2SAT 95
[2016-10-24] MEDS: ASPIRIN EC 81 MG TABEC PO SCH (08:03)
[2016-10-24] MEDS: SODIUM CHLORIDE 0.9% FLUSH 5 ML FLUSH FLUSH SCH ×2 (08:04→21:50)
--- NOTE | 2016-10-24 10:36 | HHI.PR ---
Subjective Remarks afebrile. says that ' she's already feeling better' . has mild diarrhea. Objective Vitals Vital Signs Date Time Temp Pulse Resp B/P Pulse Ox O2 Delivery O2 Flow Rate FiO2 10/24/16 08:00 96.5 74 19 129/75 95 10/24/16 04:00 96.6 78 16 112/64 98 10/23/16 22:57 98.9 84 18 131/85 99 10/23/16 21:53 73 16 118/84 99 Room Air 10/23/16 17:04 98.7 94 20 136/99 99 Room Air 10/23/16 12:50 98.4 107 20 138/92 99 I/O 10/23/16 10/23/16 10/23/16 10/24/16 10/24/16 10/24/16 07:00 15:00 23:00 07:00 15:00 23:00 Intake Total 340 ml Balance 340 ml Intake Oral 240 ml IV Total 100 ml # Voids 2 # Bowel Movements 0 Result Diagram: 10/24/16 0520 10/24/16 0520 Imaging Last Impressions Chest X-Ray 10/23/16 0000 Signed Impressions: Service Date/Time: Sunday, October 23, 2016 14:49 - CONCLUSION: No acute cardiopulmonary abnormality is identified. Dirk Siddiqi MD Objective Remarks GENERAL: This is a well-nourished, well-developed patient, in no apparent distress. CARDIOVASCULAR: Regular rate and regular rhythm without murmurs, gallops, or rubs. RESPIRATORY: Clear to auscultation. Breath sounds equal bilaterally. No wheezes , rales, or rhonchi. GASTROINTESTINAL: Abdomen soft, non-tender, nondistended. Normal, active bowel sounds MUSCULOSKELETAL: Extremities without clubbing, cyanosis, or edema. NEURO: Alert & Oriented x4 to person, place, time, situation. Moves all ext x4 Procedures none Medications and IVs Current Medications Penicillin G Sodium [id number] units/Sodium Chloride 50 ml @ 100 mls/hr ONCE IV ; Start 10/23/16 at 17:45; Status Cancel Sodium Chloride (NS 1000 ml Inj) 1,000 ml @ 999 mls/hr BOLUS ONCE IV Last administered on 10/23/16t 18:57; Start 10/23/16 at 17:45; Stop 10/23/16 at 18:45; Status DC Ketorolac Tromethamine (Toradol Inj) 15 mg ONCE ONCE IV PUSH Last administered on 10/23/16 18:58; Start 10/23/16 at 17:45; Stop 10/23/16 at 17:46; Status DC Acetaminophen 650 mg 650 mg Q4H PRN PO FEVER/PAIN 1-10/HEADACHE Last administered on 10/24/16 05:45; Start 10/23/16 at 18:00 Penicillin G Potassium/Sodium Chloride (Pfizerpen-G Inj/ NS Inj) 50 ml @ 100 mls/hr Q6H IV ; Start 10/24/16 at 01:00; Stop 10/24/16 at 01:00; Status DC Levothyroxine Sodium (Synthroid) 112 mcg DAILY@06 PO Last administered on 05:45; Start 10/24/16 at 06:00 IV Flush (NS Flush) 2 ml UNSCH PRN FLUSH FLUSH AFTER USING IV ACCESS Last administered on 10/24/16 06:59; Start 10/23/16 at 18:45 IV Flush (NS Flush) 2 ml BID FLUSH Last administered on 10/24/16 08:04; Start 10/23/16 at 21:00 Naloxone HCl (Narcan Inj) 0.4 mg UNSCH PRN IV SEE LABEL COMMENTS; Start at 18:45 Aspirin 162 mg 162 mg DAILY PO Last administered on 10/24/16 08:03; Start at 09:00 Penicillin G Potassium [id number] units/Sodium Chloride 50 ml @ 100 mls/hr ONCE ONCE IV Last administered on 10/23/16 20:37; Start 10/23/16 at 19:07; Stop at 19:44; Status DC Penicillin G Potassium/Sodium Chloride (Pfizerpen-G Inj/ NS Inj) 50 ml @ 100 mls/hr Q6H IV Last administered on 10/24/16 06:59; Start 10/24/16 at 01:00 A/P Assessment and Plan A/P leptospirosis- continue Penicillin G IV Q6H Consulted ID hypothyroidism- continue Levothyroxine 112mcg daily Headache-improved- acetaminophen as needed Hx of paroxysmal atrial fibrillation-currently in sinus rhythm continue aspirin 162 mg daily per cardiology recommendations 2015 DVT prophylaxis with early ambulation. Patito Arrington MD Oct 24, 2016 10:36
[2016-10-24 12:00] VITALS: BP 143/83; PULSE 73; RESP 19; TEMP 97.8; O2SAT 95
[2016-10-24] MEDS ORDERED: PILL SPLITTER OTHER PRN (12:15)
[2016-10-24] MEDS: FAMOTIDINE 20 MG TAB PO SCH ×2 (12:38→21:49)
--- NOTE | 2016-10-24 12:45 | PD.CONS ---
History of Present Illness Service Infectious disease Consult Requested By Dr Arrington Reason for Consult Evaluate patient for possible leptospirosis Primary Care Physician Dirk Aquino DO Diagnoses: History of Present Illness Patient seen and examined. Records reviewed. 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 Patient complains of fever and chills, body aches, headaches, eye pain with some photosensitivity, abdominal pain, nausea and vomiting, diarrhea, as well as poor appetite. She also has some suprapubic discomfort but really denies any kind of dysuria. 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 About 10 days after that exposure she started having symptoms. She went to the emergency room on , with the mentioned complaints, and she was prescribed doxycycline for presumed leptospirosis. Leptospiral antibody was sent, and the results came back borderline for IgM. Patient was not improving and continued to have the symptoms, so she presented back to the hospital and she has now been admitted. Since admission she has not had any fever. Her CBC and comprehensive metabolic profile were all within normal limits. Her urinalysis during the ED visit on October 14 was normal. She was started on IV penicillin. Today patient had noted some improvement. Her diarrhea has gone down to about 2 a day. Previously she had about 6-8 diarrhea per day. Infectious disease consultation is requested today for further evaluation and treatment for possible leptospirosis. Review of Systems Constitutional: COMPLAINS OF: Fever, Chills Eyes: COMPLAINS OF: Eye pain, Photosensitivity Ears, nose, mouth, throat: DENIES: Oral lesions, Throat pain, Ear Pain, Sinus Pain, Toothache Respiratory: DENIES: Cough, Shortness of breath Cardiovascular: DENIES: Chest pain, Palpitations, Syncope Gastrointestinal: COMPLAINS OF: Abdominal pain, Diarrhea, Nausea, Vomiting, DENIES: Difficulty Swallowing Genitourinary: COMPLAINS OF: Urgency, DENIES: Dysuria Musculoskeletal: COMPLAINS OF: Muscle aches, DENIES: Joint Swelling Integumentary: DENIES: Rash Neurologic: COMPLAINS OF: Headache, DENIES: Localized weakness Psychiatric: DENIES: Hallucinations Past Family Social History Allergies: Coded Allergies: Compazine (Unverified Allergy, Severe, 11/02/15) Latex (Unverified Allergy, Severe, 11/02/15) Reglan (Unverified Allergy, Severe, 11/02/15) Zofran (Unverified Adverse Reaction, Unknown, Headache, 11/02/15) Past Medical History Hypothyroidism Past Surgical History Appendectomy Hysterectomy Breast augmentation Benign cyst removed from right breast Spinal fusion C3 through C4 Active Ordered Medications Tylenol Aspirin Pepcid Synthroid Pen G Social History 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, 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 SKIN: Cool and dry. She has pain scars in her upper extremity and they are flat macules, that she states are her eczema that are healed. HEAD: Atraumatic. Normocephalic. No temporal or scalp tenderness. EYES: [place] conjunctiva. Pupils equal round and reactive. Extraocular motions intact. No scleral icterus. No conjunctival injection or drainage. ENT: Nose without bleeding, or purulent drainage. Moist oral mucosa. Throat without erythema, or exudate. NECK: Trachea midline. No JVD or lymphadenopathy. Supple, nontender, no meningeal signs. No nuchal rigidity. CARDIOVASCULAR: Regular rate and rhythm without murmurs, gallops, or rubs. RESPIRATORY: Clear to auscultation. Breath sounds equal bilaterally. No wheezes , rales, or rhonchi. GASTROINTESTINAL: Abdomen soft, nondistended, complain of mild tenderness especially on the right side. No rebound or guarding. No organomegaly. MUSCULOSKELETAL: Extremities without clubbing, cyanosis, or edema. No joint tenderness, effusion, or edema noted. No calf tenderness. Negative Homans sign bilaterally. NEUROLOGICAL: Awake and alert. Cranial nerves II through XII intact. Motor and sensory grossly within normal limits. Five out of 5 muscle strength in all muscle groups. Normal speech. PSYCH: Normal affect, calm and cooperative LINE: PIV with no evidence of infection Laboratory Laboratory Tests Test 10/23/16 10/23/16 10/24/16 14:35 18:55 05:20 White Blood Count 5.7 5.2 Red Blood Count 5.15 4.34 Hemoglobin 15.1 13.1 Hematocrit 44.6 37.6 Mean Corpuscular Volume 86.7 86.6 Mean Corpuscular Hemoglobin 29.3 30.2 Mean Corpuscular Hemoglobin 33.8 34.9 Concent Red Cell Distribution Width 12.8 12.7 Platelet Count 353 292 Mean Platelet Volume 7.7 7.8 Neutrophils (%) (Auto) 61.0 50.5 Lymphocytes (%) (Auto) 27.6 32.1 Monocytes (%) (Auto) 8.9 13.3 Eosinophils (%) (Auto) 1.2 2.8 Basophils (%) (Auto) 1.3 1.3 Neutrophils # (Auto) 3.5 2.6 Lymphocytes # (Auto) 1.6 1.7 Monocytes # (Auto) 0.5 0.7 Eosinophils # (Auto) 0.1 0.1 Basophils # (Auto) 0.1 0.1 CBC Comment DIFF FINAL DIFF FINAL Differential Comment Sodium Level 141 143 Potassium Level 4.1 4.1 Chloride Level 104 108 Carbon Dioxide Level 24.1 23.0 Anion Gap 13 12 Blood Urea Nitrogen 12 20 Creatinine 0.66 0.58 Estimat Glomerular Filtration 93 108 Rate Random Glucose 91 89 Lactic Acid Level 0.9 Calcium Level 9.5 8.7 Magnesium Level 1.9 Total Bilirubin 0.4 Aspartate Amino Transf 17 (AST/SGOT) Alanine Aminotransferase 24 (ALT/SGPT) Alkaline Phosphatase 87 Total Creatine Kinase 64 Troponin I LESS THAN 0.02 Total Protein 7.9 Albumin 4.3 Prothrombin Time 11.2 Prothromb Time International 1.0 Ratio Activated Partial 30.0 Thromboplast Time Date/Time Procedure Status Source Growth 10/23/16 14:35 Aerobic Blood Culture - Preliminary Resulted Blood Peripheral NO GROWTH IN 1 DAY 10/23/16 14:35 Anaerobic Blood Culture - Preliminary Resulted Blood Peripheral NO GROWTH IN 1 DAY Result Diagram: 10/24/16 0520 10/24/16 0520 Imaging RADIOLOGY STUDIES/FILMS REVIEWED Chest X-Ray 10/23/16 0000 Signed Impressions: Service Date/Time: Sunday, October 23, 2016 14:49 - CONCLUSION: No acute cardiopulmonary abnormality is identified. Dirk Siddiqi MD Assessment and Plan Assessment and Plan IMPRESSION Possible leptospirosis, had exposure to 2 dogs diagnosed with leptospirosis - no significant lab abnormality - has a lot of subjective symptoms RECOMMENDATION Repeat UA Repeat Leptospira Ab Continue PCN Usual duration of Rx is 7 days Will follow along with you Thank you for this consultation An Styles MD Oct 24, 2016 12:44
[2016-10-24] MEDS: KETOROLAC TROMETHAMINE 30 MG/ML (IVP) VIAL IV PUSH PRN ×2 (13:22→21:46)
[2016-10-24 13:27] LABS: BLOOD, URINE NEG (NEG); GLUCOSE,URINE NEG (NEG); KETONE, URINE NEG (NEG); NITRITE,URINE NEG (NEG); SQUAMOUS EPITHELIAL CELL URINE 9 /hpf (0-5); URINE COLOR LIGHT-YELLOW (YELLW/STRAW)
[2016-10-24 13:42] LABS: COMMENT (UR) CULT NOT INDICATED; CULTURE IF INDICATED CULT NOT INDICATED
[2016-10-24] MEDS: PENICILLIN G POTASSIUM INJ 3,000,000 UNITS in SODIUM CHLORIDE 0.9% INJ 100 ML IV SCH ×3 (13:47→22:46)
[2016-10-24 16:00] VITALS: BP 126/76; PULSE 69; RESP 18; TEMP 98.8; O2SAT 99
--- NOTE | 2016-10-24 18:45 | EKG ---
Date Performed: 10/23/2016 Time Performed: 14:51:22 PTAGE: 56 years EKG: Sinus rhythm NORMAL ECG PREVIOUS TRACING : 12/23/2014 13.30 DOCTOR: Chun Ling Interpretating Date/Time 10/24/2016 18:40:15
[2016-10-24 20:00] VITALS: BP 135/80; PULSE 77; RESP 16; TEMP 97.7; O2SAT 98
[2016-10-24] MEDS ORDERED: hydrOXYzine PAMOATE 25 MG CAP PO ONE (22:45)
[2016-10-25] VITALS: BP 124/75; PULSE 72; RESP 16; TEMP 97.6; O2SAT 98
[2016-10-25] MEDS: PENICILLIN G POTASSIUM INJ 3,000,000 UNITS in SODIUM CHLORIDE 0.9% INJ 100 ML IV SCH ×6 (02:28→20:33)
[2016-10-25] MEDS: LEVOTHYROXINE SODIUM 112 MCG TAB PO SCH (05:39)
[2016-10-25] MEDS: SODIUM CHLORIDE 0.9% FLUSH 5 ML FLUSH FLUSH SCH ×2 (07:56→20:32)
[2016-10-25] MEDS: ACETAMINOPHEN 325 MG TAB PO PRN (07:56)
[2016-10-25] MEDS: ASPIRIN EC 81 MG TABEC PO SCH (07:57)
[2016-10-25] MEDS: FAMOTIDINE 20 MG TAB PO SCH ×2 (07:57→20:33)
[2016-10-25 08:00] VITALS: BP 126/79; PULSE 73; RESP 20; TEMP 97.6; O2SAT 100
[2016-10-25] MEDS: KETOROLAC TROMETHAMINE 30 MG/ML (IVP) VIAL IV PUSH PRN ×3 (08:28→22:00)
--- NOTE | 2016-10-25 11:48 | HHI.PR ---
Subjective Remarks resting comfortably with no distress. still with mild headache but she says that overall she's improving. no fever. Objective Vitals Vital Signs Date Time Temp Pulse Resp B/P Pulse Ox O2 Delivery O2 Flow Rate FiO2 10/25/16 08:00 97.6 73 20 126/79 100 10/25/16 00:00 97.6 72 16 124/75 98 10/24/16 20:00 97.7 77 16 135/80 98 10/24/16 16:00 98.8 69 18 126/76 99 10/24/16 14:22 18 10/24/16 12:00 97.8 73 19 143/83 95 I/O 10/24/16 10/24/16 10/24/16 10/25/16 10/25/16 10/25/16 07:00 15:00 23:00 07:00 15:00 23:00 Intake Total 340 ml 675 ml 240 ml 200 ml Output Total 4 ml Balance 340 ml 675 ml 236 ml 200 ml Intake Oral 240 ml 575 ml 240 ml IV Total 100 ml 100 ml 200 ml Output Urine Total 4 ml # Voids 2 6 # Bowel Movements 0 2 1 Result Diagram: 10/24/16 0520 10/24/16 0520 Imaging Last Impressions Chest X-Ray 10/23/16 0000 Signed Impressions: Service Date/Time: Sunday, October 23, 2016 14:49 - CONCLUSION: No acute cardiopulmonary abnormality is identified. Dirk Siddiqi MD Objective Remarks GENERAL: This is a well-nourished, well-developed patient, in no apparent distress. CARDIOVASCULAR: Regular rate and regular rhythm without murmurs, gallops, or rubs. RESPIRATORY: Clear to auscultation. Breath sounds equal bilaterally. No wheezes , rales, or rhonchi. GASTROINTESTINAL: Abdomen soft, non-tender, nondistended. Normal, active bowel sounds MUSCULOSKELETAL: Extremities without clubbing, cyanosis, or edema. NEURO: Alert & Oriented x4 to person, place, time, situation. Moves all ext x4 Procedures none Medications and IVs Current Medications Penicillin G Sodium [id number] units/Sodium Chloride 50 ml @ 100 mls/hr ONCE IV ; Start 10/23/16 at 17:45; Status Cancel Sodium Chloride (NS 1000 ml Inj) 1,000 ml @ 999 mls/hr BOLUS ONCE IV Last administered on 10/23/16 18:57; Start 10/23/16 at 17:45; Stop 10/23/16 at 18:45; Status DC Ketorolac Tromethamine (Toradol Inj) 15 mg ONCE ONCE IV PUSH Last administered on 10/23/16 18:58; Start 10/23/16 at 17:45; Stop 10/23/16 at 17:46; Status DC Acetaminophen 650 mg 650 mg Q4H PRN PO FEVER/PAIN 1-10/HEADACHE Last administered on 10/25/16 07:56; Start 10/23/16 at 18:00 Penicillin G Potassium/Sodium Chloride (Pfizerpen-G Inj/ NS Inj) 50 ml @ 100 mls/hr Q6H IV ; Start 10/24/16 at 01:00; Stop 10/24/16 at 01:00; Status DC Levothyroxine Sodium (Synthroid) 112 mcg DAILY@06 PO Last administered on 05:39; Start 10/24/16 at 06:00 IV Flush (NS Flush) 2 ml UNSCH PRN FLUSH FLUSH AFTER USING IV ACCESS Last administered on 10/24/16 06:59; Start 10/23/16 at 18:45 IV Flush (NS Flush) 2 ml BID FLUSH Last administered on 10/25/16 07:56; Start 10/23/16 at 21:00 Naloxone HCl (Narcan Inj) 0.4 mg UNSCH PRN IV SEE LABEL COMMENTS; Start at 18:45 Aspirin 162 mg 162 mg DAILY PO Last administered on 10/25/16 07:57; Start at 09:00 Penicillin G Potassium [id number] units/Sodium Chloride 50 ml @ 100 mls/hr ONCE ONCE IV Last administered on 10/23/16 20:37; Start 10/23/16 at 19:07; Stop at 19:44; Status DC Penicillin G Potassium/Sodium Chloride (Pfizerpen-G Inj/ NS Inj) 50 ml @ 100 mls/hr Q6H IV Last administered on 10/24/16 06:59; Start 10/24/16 at 01:00; Stop 10/24/16 at 12:22; Status DC Famotidine (Pepcid) 10 mg BID PO Last administered on 10/25/16 07:57; Start 10/24/16 at 13:00 Miscellaneous 1 ea 1 ea UNSCH PRN OTHER SEE LABEL COMMENTS; Start 10/24/16 at 12 :15 Penicillin G Potassium/Sodium Chloride (Pfizerpen-G Inj/ NS Inj) 100 ml @ 100 mls/hr Q4H IV Last administered on 10/25/16 07:58; Start 10/24/16 at 14:00 Ketorolac Tromethamine (Toradol Inj) 15 mg Q8HR PRN IV PUSH PAIN >5 Last administered on 10/25/16 08:28; Start 10/24/16 at 13:00 Hydroxyzine Pamoate (Vistaril) 25 mg ONCE ONCE PO Last administered on 22:47; Start 10/24/16 at 22:45; Stop 10/24/16 at 22:46; Status DC A/P Assessment and Plan A/P leptospirosis- continue Penicillin G IV Q6H ID consult appreciated. hypothyroidism- continue Levothyroxine Headache-improved- acetaminophen as needed Hx of paroxysmal atrial fibrillation-currently in sinus rhythm continue aspirin 162 mg daily per cardiology recommendations 2015 DVT prophylaxis with early ambulation. Patito Arrington MD Oct 25, 2016 11:48
[2016-10-25 12:00] VITALS: BP 117/67; PULSE 68; RESP 20; TEMP 97.6; O2SAT 96
--- NOTE | 2016-10-25 13:11 | HHI.IDPN ---
Subjective Subjective Past Medical History Hypothyroidism Past Surgical History Appendectomy Hysterectomy Breast augmentation Benign cyst removed from right breast Spinal fusion C3 through C4 Allergies: Coded Allergies: Compazine (Unverified Allergy, Severe, 11/02/15) Latex (Unverified Allergy, Severe, 11/02/15) Reglan (Unverified Allergy, Severe, 11/02/15) Zofran (Unverified Adverse Reaction, Unknown, Headache, 11/02/15) Objective . Vital Signs Date Time Temp Pulse Resp B/P Pulse Ox O2 Delivery O2 Flow Rate FiO2 10/25/16 08:00 97.6 73 20 126/79 100 10/25/16 00:00 97.6 72 16 124/75 98 10/24/16 20:00 97.7 77 16 135/80 98 10/24/16 16:00 98.8 69 18 126/76 99 10/24/16 14:22 18 10/24/16 10/24/16 10/25/16 15:00 23:00 07:00 Intake Total 675 ml 240 ml 200 ml Output Total 4 ml Balance 675 ml 236 ml 200 ml Intake Oral 575 ml 240 ml IV Total 100 ml 200 ml Output Urine Total 4 ml # Voids 6 # Bowel Movements 2 1 . Laboratory Tests Test 10/23/16 10/24/16 14:35 05:20 White Blood Count 5.7 TH/MM3 5.2 TH/MM3 Red Blood Count 5.15 MIL/MM3 4.34 MIL/MM3 Hemoglobin 15.1 GM/DL 13.1 GM/DL Hematocrit 44.6 % 37.6 % Mean Corpuscular Volume 86.7 FL 86.6 FL Mean Corpuscular Hemoglobin 29.3 PG 30.2 PG Mean Corpuscular Hemoglobin 33.8 % 34.9 % Concent Red Cell Distribution Width 12.8 % 12.7 % Platelet Count 353 TH/MM3 292 TH/MM3 Mean Platelet Volume 7.7 FL 7.8 FL Neutrophils (%) (Auto) 61.0 % 50.5 % Lymphocytes (%) (Auto) 27.6 % 32.1 % Monocytes (%) (Auto) 8.9 % 13.3 % Eosinophils (%) (Auto) 1.2 % 2.8 % Basophils (%) (Auto) 1.3 % 1.3 % Neutrophils # (Auto) 3.5 TH/MM3 2.6 TH/MM3 Lymphocytes # (Auto) 1.6 TH/MM3 1.7 TH/MM3 Monocytes # (Auto) 0.5 TH/MM3 0.7 TH/MM3 Eosinophils # (Auto) 0.1 TH/MM3 0.1 TH/MM3 Basophils # (Auto) 0.1 TH/MM3 0.1 TH/MM3 CBC Comment DIFF FINAL DIFF FINAL Differential Comment Laboratory Tests Test 10/23/16 10/24/16 14:35 05:20 Sodium Level 141 MEQ/L 143 MEQ/L Potassium Level 4.1 MEQ/L 4.1 MEQ/L Chloride Level 104 MEQ/L 108 MEQ/L Carbon Dioxide Level 24.1 MEQ/L 23.0 MEQ/L Anion Gap 13 MEQ/L 12 MEQ/L Blood Urea Nitrogen 12 MG/DL 20 MG/DL Creatinine 0.66 MG/DL 0.58 MG/DL Estimat Glomerular Filtration 93 ML/MIN 108 ML/MIN Rate Random Glucose 91 MG/DL 89 MG/DL Lactic Acid Level 0.9 mmol/L Calcium Level 9.5 MG/DL 8.7 MG/DL Magnesium Level 1.9 MG/DL Total Bilirubin 0.4 MG/DL Aspartate Amino Transf 17 U/L (AST/SGOT) Alanine Aminotransferase 24 U/L (ALT/SGPT) Alkaline Phosphatase 87 U/L Total Creatine Kinase 64 U/L Troponin I LESS THAN 0.02 NG/ML Total Protein 7.9 GM/DL Albumin 4.3 GM/DL Microbiology Date/Time Procedure Status Source Growth 10/23/16 14:15 Aerobic Blood Culture - Preliminary Resulted Blood Peripheral NO GROWTH IN 2 DAYS 10/23/16 14:15 Anaerobic Blood Culture - Preliminary Resulted Blood Peripheral NO GROWTH IN 2 DAYS 10/23/16 14:35 Aerobic Blood Culture - Preliminary Resulted Blood Peripheral NO GROWTH IN 2 DAYS 10/23/16 14:35 Anaerobic Blood Culture - Preliminary Resulted Blood Peripheral NO GROWTH IN 2 DAYS Physical Exam GENERAL: awake and alert, NAD SKIN: Cool and dry. She has pain scars in her upper extremity and they are flat macules, that she states are her eczema that are healed. HEENT: [place] conjunctiva. No scleral icterus. No conjunctival injection or drainage. Nose without bleeding, or purulent drainage. Moist oral mucosa. NECK: Trachea midline. No JVD or lymphadenopathy. Supple, nontender, no meningeal signs. No nuchal rigidity. CARDIOVASCULAR: Regular rate and rhythm without murmurs, gallops, or rubs. RESPIRATORY: Clear to auscultation. Breath sounds equal bilaterally. No wheezes , rales, or rhonchi. GASTROINTESTINAL: Abdomen soft, nondistended, complain of mild tenderness especially on the right side. No rebound or guarding. No organomegaly. MUSCULOSKELETAL: Extremities without clubbing, cyanosis, or edema. No calf tenderness. NEUROLOGICAL: Non-focal PSYCH: Normal affect, calm and cooperative LINE: PIV with no evidence of infection Assessment & Plan Remarks IMPRESSION Possible leptospirosis, had exposure to 2 dogs diagnosed with leptospirosis - no significant lab abnormality - has a lot of subjective symptoms - initial Abx borderline - did not improve with Doxycycline RECOMMENDATION Repeat Leptospira Ab - done and pending Continue PCN Usual duration of Rx is 7 days, end date will be October 30 D/W patient regarding Rx - go home and get IV Abx at home with C or do outpatient IV - she wants to know how much out of pocket it will be for her and she can decide if home or outpatient - informed her IV PCN or IV Rocephin both effective: PCN needs midline or PICC, goes on a pump Rocephin is once a day, and can use PIV - cost will be determining factor for her D/W CM and she will work on it and will adjust Rx An Styles MD Oct 25, 2016 13:11
[2016-10-25] MEDS: hydrOXYzine PAMOATE 25 MG CAP PO PRN ×2 (15:53→22:00)
[2016-10-25 16:00] VITALS: BP 119/66; PULSE 71; RESP 20; TEMP 97.4; O2SAT 96
[2016-10-25 20:00] VITALS: BP 114/75; PULSE 74; RESP 20; TEMP 97.6; O2SAT 95
[2016-10-26] VITALS: BP_SYST 114; BP_SYST 142; BP_DIAS 61; BP_DIAS 65; PULSE 61; PULSE 78; RESP 18; RESP 20; TEMP 97.8; O2SAT 95; O2SAT 96
[2016-10-26] MEDS: PENICILLIN G POTASSIUM INJ 3,000,000 UNITS in SODIUM CHLORIDE 0.9% INJ 100 ML IV SCH ×4 (03:39→14:57)
[2016-10-26] MEDS: LEVOTHYROXINE SODIUM 112 MCG TAB PO SCH (06:08)
[2016-10-26 08:00] VITALS: BP 113/64; PULSE 62; RESP 18; TEMP 98.3; O2SAT 96
[2016-10-26] MEDS: ASPIRIN EC 81 MG TABEC PO SCH (08:56)
[2016-10-26] MEDS: KETOROLAC TROMETHAMINE 30 MG/ML (IVP) VIAL IV PUSH PRN ×2 (08:56→16:01)
[2016-10-26] MEDS: FAMOTIDINE 20 MG TAB PO SCH (08:56)
[2016-10-26] MEDS: SODIUM CHLORIDE 0.9% FLUSH 5 ML FLUSH FLUSH SCH (08:58)
--- NOTE | 2016-10-26 09:17 | HHI.PR ---
Subjective Remarks in no acute distress. has some nausea but overall she says that she's better. no fever. d/w the RN and no acute issues over night. Objective Vitals Vital Signs Date Time Temp Pulse Resp B/P Pulse Ox O2 Delivery O2 Flow Rate FiO2 10/26/16 08:00 98.3 62 18 113/64 96 10/26/16 00:00 97.8 61 18 114/61 96 10/25/16 20:00 97.6 74 20 114/75 95 10/25/16 16:00 97.4 71 20 119/66 96 10/25/16 12:00 97.6 68 20 117/67 96 I/O 10/25/16 10/25/16 10/25/16 10/26/16 10/26/16 10/26/16 07:00 15:00 23:00 07:00 15:00 23:00 Intake Total 200 ml 960 ml 480 ml 520 ml 120 ml Output Total 800 ml Balance 200 ml 160 ml 480 ml 520 ml 120 ml Intake Oral 960 ml 480 ml 320 ml 120 ml IV Total 200 ml 200 ml Output Urine Total 800 ml # Voids 2 2 # Bowel Movements 0 1 Result Diagram: 10/24/16 0520 10/24/16 0520 Imaging Last Impressions Chest X-Ray 10/23/16 0000 Signed Impressions: Service Date/Time: Sunday, October 23, 2016 14:49 - CONCLUSION: No acute cardiopulmonary abnormality is identified. Dirk Siddiqi MD Objective Remarks GENERAL: This is a well-nourished, well-developed patient, in no apparent distress. CARDIOVASCULAR: Regular rate and regular rhythm without murmurs, gallops, or rubs. RESPIRATORY: Clear to auscultation. Breath sounds equal bilaterally. No wheezes , rales, or rhonchi. GASTROINTESTINAL: Abdomen soft, non-tender, nondistended. Normal, active bowel sounds MUSCULOSKELETAL: Extremities without clubbing, cyanosis, or edema. NEURO: Alert & Oriented x4 to person, place, time, situation. Moves all ext x4 Procedures none Medications and IVs Current Medications Penicillin G Sodium 0400529 units/Sodium Chloride 50 ml @ 100 mls/hr ONCE IV ; Start 10/23/16 at 17:45; Status Cancel Sodium Chloride (NS 1000 ml Inj) 1,000 ml @ 999 mls/hr BOLUS ONCE IV Last administered on 10/23/16 18:57; Start 10/23/16 at 17:45; Stop 10/23/16 at 18:45; Status DC Ketorolac Tromethamine (Toradol Inj) 15 mg ONCE ONCE IV PUSH Last administered on 10/23/16 18:58; Start 10/23/16 at 17:45; Stop 10/23/16 at 17:46; Status DC Acetaminophen 650 mg 650 mg Q4H PRN PO FEVER/PAIN 1-10/HEADACHE Last administered on 10/25/16 07:56; Start 10/23/16 at 18:00 Penicillin G Potassium/Sodium Chloride (Pfizerpen-G Inj/ NS Inj) 50 ml @ 100 mls/hr Q6H IV ; Start 10/24/16 at 01:00; Stop 10/24/16 at 01:00; Status DC Levothyroxine Sodium (Synthroid) 112 mcg DAILY@06 PO Last administered on 06:08; Start 10/24/16 at 06:00 IV Flush (NS Flush) 2 ml UNSCH PRN FLUSH FLUSH AFTER USING IV ACCESS Last administered on 10/24/16 06:59; Start 10/23/16 at 18:45 IV Flush (NS Flush) 2 ml BID FLUSH Last administered on 10/26/16 08:58; Start 10/23/16 at 21:00 Naloxone HCl (Narcan Inj) 0.4 mg UNSCH PRN IV SEE LABEL COMMENTS; Start at 18:45 Aspirin 162 mg 162 mg DAILY PO Last administered on 10/26/16 08:56; Start 10/24 at 09:00 Penicillin G Potassium [id number] units/Sodium Chloride 50 ml @ 100 mls/hr ONCE ONCE IV Last administered on 10/23/16 20:37; Start 10/23/16 at 19:07; Stop at 19:44; Status DC Penicillin G Potassium/Sodium Chloride (Pfizerpen-G Inj/ NS Inj) 50 ml @ 100 mls/hr Q6H IV Last administered on 10/24/16 06:59; Start 10/24/16 at 01:00; Stop 10/24/16 at 12:22; Status DC Famotidine (Pepcid) 10 mg BID PO Last administered on 10/26/16 08:56; Start at 13:00 Miscellaneous 1 ea 1 ea UNSCH PRN OTHER SEE LABEL COMMENTS; Start 10/24/16 at 12 :15 Penicillin G Potassium/Sodium Chloride (Pfizerpen-G Inj/ NS Inj) 100 ml @ 100 mls/hr Q4H IV Last administered on 10/26/16 06:08; Start 10/24/16 at 14:00 Ketorolac Tromethamine (Toradol Inj) 15 mg Q8HR PRN IV PUSH PAIN >5 Last administered on 10/26/16 08:56; Start 10/24/16 at 13:00 Hydroxyzine Pamoate (Vistaril) 25 mg ONCE ONCE PO Last administered on 22:47; Start 10/24/16 at 22:45; Stop 10/24/16 at 22:46; Status DC Hydroxyzine Pamoate (Vistaril) 25 mg Q6H PRN PO NAUSEA Last administered on 10/25 22:00; Start 10/25/16 at 15:15 A/P Assessment and Plan A/P leptospirosis- continue Penicillin G IV Q6H ID f/u appreciated. hypothyroidism- continue Levothyroxine Headache-improved- acetaminophen as needed Hx of paroxysmal atrial fibrillation-currently in sinus rhythm continue aspirin 162 mg daily per cardiology recommendations 2015 DVT prophylaxis with early ambulation. Discharge Planning d/w the case management; working on the cost of outpatient treatment with IV antibiotic. might need to stay for the duration of therapy. Patito Arrington MD Oct 26, 2016 09:17
[2016-10-26] MEDS: SODIUM CHLORIDE 0.9% FLUSH 5 ML FLUSH FLUSH PRN (10:01)
[2016-10-26] MEDS: hydrOXYzine PAMOATE 25 MG CAP PO PRN ×2 (10:03→16:01)
--- NOTE | 2016-10-26 11:14 | HHI.FF ---
Face to Face Verification Diagnosis: (1) Leptospirosis Home Health Nursing Order: Medical education Signs/symptoms of disease process Medication education-adverse effect IV medication administration Instructions: IV access care. I have seen patient Sydney Alaniz on 10/26/16. My clinical findings support the need for the requested home health care services because: Ltd mobility - disease progression I certify that my clinical findings support that this patient is homebound because: Unsafe to leave home unassisted Patito Arrington MD Oct 26, 2016 11:14
[2016-10-26] MEDS ORDERED: ASPI81TA11 PO (11:19)
--- NOTE | 2016-10-26 11:19 | HHI.DS ---
Discharge Summary Admission Date Oct 23, 2016 at 18:14 Discharge Date: Oct 26, 2016 Admitting Diagnosis Leptospirosis (1) Leptospirosis ICD Code: A27.9 Procedures none Brief History - From Admission Patient is a 56-year-old female with a past medical history which includes hypothyroidism. Patient presenting to the emergency department for evaluation of fever, chills, abdominal cramping, diarrhea, lack of appetite, eye pain, headaches. 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 Patient went to [facility] in [place] on 10/14/16 due to a febrile illness, at that time leptospira IgM was sent to [facility]. Patient was started on doxycycline empirically at that time. Has taken doxycycline PO x 9 days and reports no improvement of symptoms. Patient' s IgM leptospirosis blood test resulted as borderline. Patient has lost 3 pounds in the past week, decreased appetite continued diarrhea also continues to have headaches, and polyuria. Denies dysuria. She went to her primary care provider's office this morning who advised her to return to the emergency department for further evaluation. Patient has also traveled to [place] a little over a month ago. Patient denies chest pain, shortness of breath. CBC/BMP: 10/24/16 0520 10/24/16 0520 Significant Findings Laboratory Tests Test 10/23/16 10/24/16 10/24/16 14:35 05:20 13:17 Monocytes (%) (Auto) 8.9 % (0.0-8.0) 13.3 % (0.0-8.0) Troponin I LESS THAN 0.02 NG/ML (0.02-0.05) Chloride Level 108 MEQ/L (98-107) Blood Urea Nitrogen 20 MG/DL (7-18) Urine Turbidity HAZY (CLEAR) Imaging Last Impressions Chest X-Ray 10/23/16 0000 Signed Impressions: Service Date/Time: Sunday, October 23, 2016 14:49 - CONCLUSION: No acute cardiopulmonary abnormality is identified. Dirk Siddiqi MD PE at Discharge GENERAL: This is a well-nourished, well-developed patient, in no apparent distress. CARDIOVASCULAR: Regular rate and regular rhythm without murmurs, gallops, or rubs. RESPIRATORY: Clear to auscultation. Breath sounds equal bilaterally. No wheezes , rales, or rhonchi. GASTROINTESTINAL: Abdomen soft, non-tender, nondistended. Normal, active bowel sounds MUSCULOSKELETAL: Extremities without clubbing, cyanosis, or edema. NEURO: Alert & Oriented x4 to person, place, time, situation. Moves all ext x4 Hospital Course leptospirosis- continue Penicillin G IV Q6H ID f/u appreciated. hypothyroidism- continue Levothyroxine Headache-improved- acetaminophen as needed Hx of paroxysmal atrial fibrillation-currently in sinus rhythm continue aspirin 162 mg daily per cardiology recommendations 2015 DVT prophylaxis with early ambulation. Pt Condition on Discharge: Good Discharge Disposition: Disch w/ Home Health Serv Discharge Time: <= 30 minutes Discharge Instructions DIET: Follow Instructions for: Heart Healthy Diet Activities you can perform: Regular-No Restrictions Follow up Referrals: PCP Follow-up New Medications: Aspirin DR (Aspirin EC) 81 Mg Tabdr 162 MG PO DAILY a-fib Days 30 Ref 0 TAB Continued Medications: Levothyroxine (Levothyroxine) 112 Mcg Tab 112 MCG PO DAILY Thyroid #30 Ref 0 TAB Modafinil (Provigil) 200 Mg Tab 200 MG PO DIRECTED Manage Daytime Sleepiness Ref 0 TAB Discontinued Medications: Doxycycline Hyclate (Doxycycline Hyclate) 100 Mg Cap 100 MG PO BID Infection #20 Patito Patel MD Oct 26, 2016 11:18
[2016-10-26 12:00] VITALS: BP 106/79; PULSE 72; RESP 20; TEMP 98; O2SAT 100
--- NOTE | 2016-10-26 15:45 | RADRPT ---
EXAM DATE/TIME: 10/26/2016 15:27 [facility] COMPARISON: CHEST SINGLE AP, October 23, 2016, 14:49. INDICATIONS : Evaluate heart and lungs post PICC line placement. MEDICAL HISTORY : None. Leptospirosis SURGICAL HISTORY : None. ENCOUNTER: Initial ACUITY: 1 day PAIN SCORE: Non-responsive. LOCATION: chest FINDINGS: A single view of the chest demonstrates placement of a right upper extremity PICC line. Tip of the PI CC line is in the superior vena cava. Lungs are main free of significant congestion or airspace disease. Heart and mediastinal structures are unremarkable. CONCLUSION: Satisfactory position a right upper extremity PICC line. No evidence of acute cardiopulmonary process. Master Best MD on October 26, 2016 at 15:43 Board Certified Radiologist. This report was verified electronically.
== END 2016-10-26 16:15 | disposition home health service (06) | DRG 869 ==
LOC: NEPA 12:48 → NETRI 12:48 → NEDA 18:14 → NEDH 22:21 → N07A 22:53
PROVIDERS: ADMIT Internal Medicine; ATTEND Internal Medicine
DX: A27.9 Leptospirosis, unspecified (principal); I48.0 Paroxysmal atrial fibrillation; E03.9 Hypothyroidism, unspecified; L30.9 Dermatitis, unspecified; Z98.1 Arthrodesis status; Z88.8 Allergy status to other drugs, medicaments and biological substances; Z91.040 Latex allergy status; Z79.82 Long term (current) use of aspirin
CPT/HCPCS: 36569; 71010; 76937; 80048; 80053; 81001; 82550; 83605; 83735; 84484; 85025; 85610; 85730; 87040; 93005; J1885; J2540; J7030; Q0177

== ENCOUNTER 2018-01-16 08:39 | Observation (INO) | payer BC ==
[~2018-01-16] VITALS: Ht 167.6 cm; Wt 72.5 kg
[2018-01-16] VITALS (7 sets, daily range): BP systolic 120–185; BP diastolic 66–104; PULSE 71–100; RESP 18–20; TEMP 96.9–98.9; O2SAT 95–99
[~2018-01-16 08:39] MED LIST changes: -ADDE20 PO; +ASPI81TA23 PO; -DOXY100C PO; -IBUP-238 PO; -METO50TA PO; +MODA1TAB31 PO
[2018-01-16] MEDS ORDERED: ESTR0.5T PO (08:51)
[2018-01-16] MEDS ORDERED: ONDANSETRON ODT 4 MG TAB PO ONE (09:45)
[2018-01-16] MEDS ORDERED: SODIUM CHLORIDE 0.9% FLUSH 10 ML FLUSH IVF PRN (09:45)
[2018-01-16] MEDS ORDERED: MORPHINE SULFATE 4 MG/ML INJ IV PUSH ONE (09:45)
--- NOTE | 2018-01-16 09:55 | PD ---
HPI Chief Complaint: Chest Pain Time Seen by Provider: 09:29 Travel History International Travel<30 days: No Contact w/Intl Traveler<30days: No Traveled to known affect area: No History of Present Illness HPI The patient was seen and examined in the presence of the nurse. This patient complains of chest pain. Location is center sternum and also some left lower chest. She describes it as a pressure. He feels like a weight on her chest. No injury. No fever. No cough. Pain started at 3:30 AM. Duration is 6 hours. Severity is moderate. It waxes and wanes. It is not exertional. [place] 2 [place] 4 [place] and has not had pain with that recently. No history of cardiac problems. Never had stress testing. No alleviating factors. No exacerbating factors. PFSH Past Medical History ADD: Yes Arthritis: No Atrial Fibrillation: Yes (with epi dosing) Autoimmune Disease: Yes Cancer: No Cardiovascular Problems: No Diabetes: No Endocrine: Yes (hypothyroidism) Gastrointestinal Disorders: No Genitourinary: No Immune Disorder: No Musculoskeletal: Yes (kicked by horse leading to c2-c4 fusion) Neurologic: No Psychiatric: No Reproductive: No Respiratory: No Integumentary: Yes (ECZEMA) Thyroid Disease: Yes Influenza Vaccination: No ?: Not Menopausal: Yes Past Surgical History Abdominal Surgery: Yes (appendectomy) Appendectomy: Yes Gynecologic Surgery: Yes (cyst removal from right breast 2013, 2008 hysterectomy) Hysterectomy: Yes Neurologic Surgery: Yes (c2-4 fusion in 2004) Other Surgery: Yes (spinal fusion) Social History Alcohol Use: Yes ("COUPLE TIMES PER WEEK") Tobacco Use: No (used to vap) Substance Use: No Allergies-Medications (Allergen,Severity, Reaction): Coded Allergies: latex (Unverified Allergy, Severe, 01/16/18) metoclopramide (Unverified Allergy, Severe, 01/16/18) prochlorperazine (Unverified Allergy, Severe, 01/16/18) ondansetron (Unverified Adverse Reaction, Unknown, Headache, 01/16/18) Reported Meds & Prescriptions Reported Meds & Active Scripts Active Reported Estradiol 0.5 Mg Tab 0.5 Mg PO DAILY Levothyroxine (Levothyroxine Sodium) 112 Mcg Tab 112 Mcg PO DAILY Provigil (Modafinil) 200 Mg Tab 200 Mg PO DIRECTED Review of Systems General / Constitutional: No: Fever Eyes: No: Visual changes HENT: No: Headaches Cardiovascular: Positive: Chest Pain or Discomfort Respiratory: No: Shortness of Breath Gastrointestinal: No: Abdominal Pain Genitourinary: No: Dysuria Musculoskeletal: No: Pain Skin: No Rash Neurologic: No: Weakness Psychiatric: No: Depression Endocrine: No: Polydipsia Hematologic/Lymphatic: No: Easy Bruising Physical Exam Narrative GENERAL: Well-nourished, well-developed patient with chest pressure. SKIN: Focused skin assessment reveals no rash and nodules. Skin is Warm and dry. HEAD: Atraumatic. Normocephalic. EYES: Pupils equal and round. No scleral icterus. No injection or drainage. ENT: No nasal bleeding or discharge. Mucous membranes pink and moist. NECK: Trachea midline. No JVD. CARDIOVASCULAR: Regular rate and rhythm. No murmur appreciated. RESPIRATORY: No accessory muscle use. Clear to auscultation. Breath sounds equal bilaterally. GASTROINTESTINAL: Abdomen soft, non-tender, nondistended. Hepatic and splenic margins not palpable. MUSCULOSKELETAL: No obvious deformities. No clubbing. No cyanosis. No edema. There is some chest wall tenderness but it is inconsistent and not convincing NEUROLOGICAL: Awake and alert. No obvious cranial nerve deficits. Motor grossly within normal limits. Normal speech. PSYCHIATRIC: Appropriate mood and affect; insight and judgment normal. Data Data Last Documented VS Vital Signs Date Time Temp Pulse Resp B/P (MAP) Pulse Ox O2 Delivery O2 Flow Rate FiO2 01/16/18 09:03 77 20 156/74 (101) Room Air 01/16/18 08:51 98 01/16/18 08:41 98.9 Orders Orders Electrocardiogram (01/16/18 09:40) Basic Metabolic Panel (Bmp) (01/16/18 09:40) Ckmb (Isoenzyme) Profile (01/16/18 09:40) Complete Blood Count With Diff (01/16/18 09:40) Magnesium (Mg) (01/16/18 09:40) Prothrombin Time / Inr (Pt) (01/16/18 09:40) Act Partial Throm Time (Ptt) (01/16/18 09:40) Troponin I (01/16/18 09:40) Chest, Single Ap (01/16/18 09:40) Ecg Monitoring (01/16/18 09:40) Iv Access Insert/Monitor (01/16/18 09:40) Oximetry (01/16/18 09:40) Morphine Inj (Morphine Inj) (01/16/18 09:45) Sodium Chloride 0.9% Flush (Ns Flush) (01/16/18 09:45) Ondansetron Odt (Zofran Odt) (01/16/18 09:45) CKMB (01/16/18:45) CKMB% (01/16/18 09:45) Labs Laboratory Tests Test 01/16/18 09:45 White Blood Count 5.9 TH/MM3 Red Blood Count 4.51 MIL/MM3 Hemoglobin 13.8 GM/DL Hematocrit 39.5 % Mean Corpuscular Volume 87.7 FL Mean Corpuscular Hemoglobin 30.5 PG Mean Corpuscular Hemoglobin Concent 34.8 % Red Cell Distribution Width 13.1 % Platelet Count 369 TH/MM3 Mean Platelet Volume 7.7 FL Neutrophils (%) (Auto) 61.0 % Lymphocytes (%) (Auto) 26.8 % Monocytes (%) (Auto) 9.1 % Eosinophils (%) (Auto) 1.8 % Basophils (%) (Auto) 1.3 % Neutrophils # (Auto) 3.6 TH/MM3 Lymphocytes # (Auto) 1.6 TH/MM3 Monocytes # (Auto) 0.5 TH/MM3 Eosinophils # (Auto) 0.1 TH/MM3 Basophils # (Auto) 0.1 TH/MM3 CBC Comment DIFF FINAL Differential Comment Prothrombin Time 10.6 SEC Prothromb Time International Ratio 1.0 RATIO Activated Partial Thromboplast Time 26.1 SEC Blood Urea Nitrogen 18 MG/DL Creatinine 0.76 MG/DL Random Glucose 88 MG/DL Calcium Level 9.2 MG/DL Magnesium Level 2.0 MG/DL Sodium Level 137 MEQ/L Potassium Level 5.0 MEQ/L Chloride Level 103 MEQ/L Carbon Dioxide Level 23.2 MEQ/L Anion Gap 11 MEQ/L Estimat Glomerular Filtration Rate 79 ML/MIN Total Creatine Kinase 168 U/L Creatine Kinase MB 1.0 NG/ML Troponin I LESS THAN 0.02 NG/ML MDM Medical Decision Making Medical Screen Exam Complete: Yes Emergency Medical Condition: Yes Medical Record Reviewed: Yes Differential Diagnosis Differential diagnosis includes AK, angina, pericarditis, pleurisy, GERD, anxiety. Narrative Course I have reviewed the patient's electronic medical record. Patient had 2 CTAs of the chest in 2014 that were both negative for PE I reviewed her EKG which is normal Extended cardiac monitoring reveals sinus rhythm without ectopy IV placed and labs sent I gave her dose of morphine and Zofran for symptom relief. She has multiple allergies listed to nausea medications. She can take Zofran and ask for it by name. She got a headache after taking it before so that is why it was listed as an allergy. We reviewed her chest x-ray which is normal She had aspirin prior to arrival General blood counts and metabolic studies and cardiac enzymes are normal Patient will be a 23 hour observation in the chest pain center in order to rule out cardiac cause of her symptoms. Diagnosis Primary Impression: Chest pain at rest Admitting Information Admitting Physician Requests: Observation Bharath Crews MD January 16, 2018 09:55
[2018-01-16 10:00] LABS: AUTOMATED NEUTROPHIL # 3.6 TH/MM3 (1.8-7.7); BASOPHIL # 0.1 TH/MM3 (0-0.2); BASOPHIL % 1.3 % (0.0-2.0); EOSINOPHIL # 0.1 TH/MM3 (0-0.4); EOSINOPHIL % 1.8 % (0.0-4.0); HEMATOCRIT 39.5 % (35.0-46.0); HEMOGLOBIN 13.8 GM/DL (11.6-15.3); LYMPH % 26.8 % (9.0-44.0); LYMPHOCYTE # 1.6 TH/MM3 (1.0-4.8); MEAN CELL VOLUME 87.7 FL (80.0-100.0); MEAN CORPUSCULAR HEMOGLOBIN 30.5 PG (27.0-34.0); MEAN CORPUSCULAR HGB CONC 34.8 % (32.0-36.0); MEAN PLATELET VOLUME 7.7 FL (7.0-11.0); MONO % 9.1 % (0.0-8.0); MONOCYTE # 0.5 TH/MM3 (0-0.9); PLATELET COUNT 369 TH/MM3 (150-450); RED BLOOD COUNT 4.51 MIL/MM3 (4.00-5.30); RED CELL DISTRIBUTION WIDTH 13.1 % (11.6-17.2); WHITE BLOOD COUNT 5.9 TH/MM3 (4.0-11.0)
--- NOTE | 2018-01-16 10:03 | RADRPT ---
EXAM DATE: 01/16/2018 9:58 AM EDT AGE/SEX: 57 years / Female INDICATIONS: Chest pain. CLINICAL DATA: This is the patient's initial encounter. Patient reports that signs and symptoms have been present for 1 day and indicates a pain score of 8/10. MEDICAL/SURGICAL HISTORY: . Leptospirosis None. COMPARISON: [facility] [place] CHEST SINGLE AP, 10/26/2016. . FINDINGS: A single AP view of the chest demonstrates the lungs to be symmetrically aerated without evidence of mass, infiltrate or effusion. The cardiomediastinal contours are unremarkable. Osseous structures a re intact. CONCLUSION: No acute cardiopulmonary disease. Electronically signed by: Aquilino Hayes MD 01/16/2018 10:02 AM EDT
[2018-01-16 10:08] LABS: PROTHROMBIN TIME - PATIENT 10.6 SEC (9.8-11.6)
[2018-01-16 10:31] LABS: BICARBONATE 23.2 MEQ/L (21.0-32.0); BLOOD UREA NITROGEN 18 MG/DL (7-18); CALCIUM 9.2 MG/DL (8.5-10.1); CHLORIDE 103 MEQ/L (98-107); CREATININE 0.76 MG/DL (0.50-1.00); GLOMERULAR FILTRATION RATE 79 ML/MIN (>89); GLUCOSE,RANDOM 88 MG/DL (74-106); SODIUM (NA) 137 MEQ/L (136-145); TROPONIN I LESS THAN 0.02 NG/ML (0.02-0.05)
[2018-01-16] MEDS ORDERED: LIDOCAINE VISCOUS 2% SOLN 15 ML UDC PO ONE (13:15)
[2018-01-16] MEDS ORDERED: ALUMINUM/MAGNESIUM/SIMETH 30 ML CUP PO ONE (13:15)
[2018-01-16 13:21] LABS: TROPONIN I LESS THAN 0.02 NG/ML (0.02-0.05)
[2018-01-16] MEDS ORDERED: DEXAMETHASONE SOD PHOS 20 MG/5 ML VIAL IV PUSH ONE (14:00)
[2018-01-16] MEDS ORDERED: ACETAMINOPHEN/HYDROcodone 325 MG/7.5 MG TAB PO PRN (14:15)
[2018-01-16] MEDS ORDERED: ACETAMINOPHEN 500 MG CPLT PO PRN (14:15)
[2018-01-16] MEDS: HYDROmorphone HCL PF 0.5 MG/0.5 ML SYRINGE IV PUSH PRN ×3 (14:20→23:05)
--- NOTE | 2018-01-16 14:36 | HHI.HP ---
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 Patient states she woke up having a dream that she was having pain and in fact was there when she awoke. Describes it as a crushing pain on the left side of her chest. Worsened when she takes in a deep breath and even more so when she lies flat. When she sits back up the pain improves. Pain has been as bad as a 10 out of 10. Currently an 8 out of 10. States IV morphine did help in the ED. But the discomfort is intensifying currently. Denies history of CAD but states she has never had a stress test. Denies any knowledge of recent illness but states she works with multiple sick contacts. She denies shortness of breath, nausea, or diaphoresis. Denies recent travel. Denies calf pain or swelling. Review of Systems General: Patient denies fevers, chills, and recent travel. HEENT: Patient denies headache, sore throat, difficulty swallowing. Cardiovascular: Has the chest discomfort as mentioned above. Denies sensation of heart beating rapidly or irregularly. No syncope. Denies diaphoresis. Respiratory: Denies shortness of breath but states that discomfort is worsened with deep inspiration and lying flat.. Denies coughing wheezing or hemoptysis. GI: Patient denies nausea, vomiting, diarrhea, abdominal pain, bloody stools. Musculoskeletal: Patient denies joint pain or edema. Denies calf pain or edema. Neurovascular: Patient denies numbness, tingling, weakness in extremities. Denies headache. Endocrine: Denies polyuria and polydipsia. Hematologic: Denies easy bruising. Skin: Denies rash or itching. Past Family Social History Allergies: Coded Allergies: latex (Unverified Allergy, Severe, 01/16/18) metoclopramide (Unverified Allergy, Severe, 01/16/18) prochlorperazine (Unverified Allergy, Severe, 01/16/18) ondansetron (Unverified Adverse Reaction, Unknown, Headache, 01/16/18) Past Medical History Hypothyroidism. She had one episode of atrial fibrillation in 2014 that was related to treatment of anaphylaxis. Hyperlipidemia but trying diet control. Currently no medication for it. Denies hypertension, diabetes, and known CAD. Past Surgical History Cervical fusion. Appendectomy and hysterectomy. Reported Medications Reported Meds & Active Scripts Active Reported Estradiol 0.5 Mg Tab 0.5 Mg PO DAILY Levothyroxine (Levothyroxine Sodium) 112 Mcg Tab 112 Mcg PO DAILY Provigil (Modafinil) 200 Mg Tab 200 Mg PO DIRECTED Active Ordered Medications Current Medications Medications (Trade) Dose Ordered Sig/[place] Route Start Time Stop Time Status Last Admin (NS Flush) 2 ml UNSCH PRN IVF 01/16/18 09:45 01/16/18 09:49 (Decadron Inj) 4 mg Q6HR IV PUSH 01/16/18 18:00 (Dilaudid Pf Inj) 0.5 mg Q4H PRN IV PUSH 01/16/18 14:15 01/16/18 14:20 (Tylenol) 500 mg Q4H PRN PO 01/16/18 14:15 ([place] 7.5-325 Mg) 1 tab Q4H PRN PO 01/16/18 14:15 (Aspirin) 325 mg DAILY PO 01/17/18 09:00 (Synthroid) 112 mcg DAILY@0600 PO 01/17/18 06:00 Family History States that her mother had stents she believes. Her father had CVAs. Social History Non-smoker. Occasional alcohol. Denies illicit drug use. Physical Exam Vital Signs Vital Signs Date Time Temp Pulse Resp B/P (MAP) Pulse Ox O2 Delivery O2 Flow Rate FiO2 01/16/18 13:13 80 20 130/76 (94) 96 Room Air 01/16/18 09:03 77 20 156/74 (101) Room Air 01/16/18 08:51 77 20 172/98 (122) 98 Room Air 01/16/18 08:41 98.9 100 20 185/104 (131) 99 Physical Exam GENERAL: This is a well-nourished, well-developed patient, in no apparent distress. Patient speaks in clear complete sentences. Patient is pleasant. HEENT: Head is atraumatic and normocephalic. Neck is supple without lymphadenopathy and trachea is midline. No JVD or carotid bruits. CARDIOVASCULAR: Regular rate and rhythm without murmurs, gallops, or rubs. RESPIRATORY: Clear to auscultation. Breath sounds equal bilaterally. No wheezes , rales, or rhonchi. Chest wall is nontender. No use of accessory muscles. GASTROINTESTINAL: Abdomen is nontender, nondistended. Abdomen soft. No obvious pulsatile mass or bruit. No CVA tenderness. Strong femoral pulses bilaterally. Normal bowel sounds in all quadrants. MUSCULOSKELETAL: Patient is moving upper and lower extremities freely. No calf tenderness or edema, no Homans sign. Strong pulses in upper and lower extremities. NEUROLOGICAL: Patient is alert and oriented. Cranial nerves 2-12 are grossly intact. No focal deficits and speech is clear. SKIN: No rash and turgor is normal. Laboratory Laboratory Tests Test 01/16/18 09:45 01/16/18 12:37 White Blood Count 5.9 Red Blood Count 4.51 Hemoglobin 13.8 Hematocrit 39.5 Mean Corpuscular Volume 87.7 Mean Corpuscular Hemoglobin 30.5 Mean Corpuscular Hemoglobin Concent 34.8 Red Cell Distribution Width 13.1 Platelet Count 369 Mean Platelet Volume 7.7 Neutrophils (%) (Auto) 61.0 Lymphocytes (%) (Auto) 26.8 Monocytes (%) (Auto) 9.1 Eosinophils (%) (Auto) 1.8 Basophils (%) (Auto) 1.3 Neutrophils # (Auto) 3.6 Lymphocytes # (Auto) 1.6 Monocytes # (Auto) 0.5 Eosinophils # (Auto) 0.1 Basophils # (Auto) 0.1 CBC Comment DIFF FINAL Differential Comment Prothrombin Time 10.6 Prothromb Time International Ratio 1.0 Activated Partial Thromboplast Time 26.1 Blood Urea Nitrogen 18 Creatinine 0.76 Random Glucose 88 Calcium Level 9.2 Magnesium Level 2.0 Sodium Level 137 Potassium Level 5.0 Chloride Level 103 Carbon Dioxide Level 23.2 Anion Gap 11 Estimat Glomerular Filtration Rate 79 Total Creatine Kinase 168 89 Creatine Kinase MB 1.0 Troponin I LESS THAN 0.02 LESS THAN 0.02 Result Diagram: 01/16/1894401/16/18944 Imaging Last 48 hours Impressions Chest X-Ray 01/16/18 0940 Signed Impressions: CONCLUSION: No acute cardiopulmonary disease. Course Initial EKGs reveal sinus rhythm without significant ST segment depressions or elevations. Caprini VTE Risk Assessment Caprini VTE Risk Assessment: No/Low Risk (score <= 1) Caprini Risk Assessment Model Point Value = 1 Point Value = 2 Point Value = 3 Point Value = 5 Age 41-60 Minor surgery BMI > 25 kg/m2 Swollen legs Varicose veins or History of unexplained or recurrent spontaneous Oral contraceptives or hormone replacement Sepsis (< 1 month) Serious lung disease, including pneumonia (< 1 month) Abnormal pulmonary function Acute myocardial infarction Congestive heart failure (< 1 month) History of inflammatory bowel disease Medical patient at bed rest Age 61-74 Arthroscopic surgery Major open surgery (> 45 min) Laparoscopic surgery (> 45 min) Malignancy Confined to bed (> 72 hours) Immobilizing plaster cast Central venous access Age >= 75 History of VTE Family history of VTE Factor V Leiden Prothrombin [id number] Lupus anticoagulant Anticardiolipin antibodies Elevated serum homocysteine Heparin-induced thrombocytopenia Other congenital or acquired thrombophilia Stroke (< 1 month) Elective arthroplasty Hip, pelvis, or leg fracture Acute spinal cord injury (< 1 month) Prophylaxis Regimen Total Risk Factor Score Risk Level Prophylaxis Regimen 0-1 Low Early ambulation 2 Moderate Order ONE of the following: *Sequential Compression Device (SCD) *Heparin 5000 units SQ BID 3-4 Higher Order ONE of the following medications: *Heparin 5000 units SQ TID *Enoxaparin/Lovenox 40 mg SQ daily (WT < 150 kg, CrCl > 30 mL/min) *Enoxaparin/Lovenox 30 mg SQ daily (WT < 150 kg, CrCl > 10-29 mL/min) *Enoxaparin/Lovenox 30 mg SQ BID (WT < 150 kg, CrCl > 30 mL/min) AND/OR *Sequential Compression Device (SCD) 5 or more Highest Order ONE of the following medications: *Heparin 5000 units SQ TID (Preferred with Epidurals) *Enoxaparin/Lovenox 40 mg SQ daily (WT < 150 kg, CrCl > 30 mL/min) *Enoxaparin/Lovenox 30 mg SQ daily (WT < 150 kg, CrCl > 10-29 mL/min) *Enoxaparin/Lovenox 30 mg SQ BID (WT < 150 kg, CrCl > 30 mL/min) AND *Sequential Compression Device (SCD) Assessment and Plan Assessment and Plan * Chest pain: Patient will continue to have serial cardiac enzymes and EKGs for ruling out purposes. She has been seen by Dr. Strickland of cardiology in the chest pain center. He believes she has pericarditis and will be treating her appropriately. She will be given a dose of Decadron 10 mg IV 1 followed by 4 mg of Decadron IV for 3 more doses. There will be no stress testing in the morning. She would likely be discharged tomorrow if she is pain-free with prescription of a Medrol Dosepak with instructions to follow-up with PCP and return to ED for interval issues. We will also get a CT pulmonary angiogram to rule out pulmonary emboli as well as evaluate for pericardial effusion. * Hypothyroidism: We will get a TSH. Patient is stable at this time. She is agreeable to this plan. Yasmany Oviedo January 16, 2018 14:36
--- NOTE | 2018-01-16 14:57 | EKG ---
Date Performed: 01/16/2018 Time Performed: 08:48:54 PTAGE: 57 years EKG: Sinus rhythm NORMAL ECG INTERPRETATION BASED ON A DEFAULT AGE OF 40 YEARS Since the PREVIOUS TRACING , no significant change noted PREVIOUS TRACIN10/23/2016 14.51.22 DOCTOR: Shorty Serrano Interpretating Date/Time 01/16/2018 14:55:40
[2018-01-16] MEDS ORDERED: ONDANSETRON ODT 4 MG TAB PO PRN (15:15)
[2018-01-16] MEDS ORDERED: IOHEXOL 350 MG/ML 10 ML VIAL (for RAD DIAG) IVCONTRAST ONE (15:49)
--- NOTE | 2018-01-16 15:56 | RADRPT ---
EXAM DATE: 01/16/2018 3:48 PM EDT AGE/SEX: 57 years / Female INDICATIONS: Chest pain, shortness of breath. CLINICAL DATA: This is the patient's initial encounter. Patient reports that signs and symptoms have been present for 1 day and indicates a pain score of 8/10. MEDICAL/SURGICAL HISTORY: . Thyroid disease, Afib Hysterectomy. Appendectomy. RADIATION DOSE: 10.30 CTDI (mGy) COMPARISON: [facility] [place], CT PULMONARY ANGIOGRAM, 12/23/2014. . TECHNIQUE: Volumetric scanning was performed using a multi-row detector CT scanner during bolus infu kelsey of 74 ml Omnipaque 350 (iohexol) nonionic water-soluble contrast as a single exam dose. The libby a was post processed with a variety of visualization algorithms including full volume maximum intensi ty projection and sliding thin slab reformation. Using automated exposure control and adjustment of the mA and/or kV according to patient size, radiation dose was kept as low as reasonably achievable t o obtain optimal diagnostic quality images. FINDINGS: Pulmonary Arteries: No filling defects are seen in the pulmonary arteries out to the subsegmental ve ssels. The left and right pulmonary arteries are normal in diameter. Lung: No infiltrates seen. Effusion: None. Mediastinum: No evidence of mediastinal or hilar adenopathy. Other: The axilla is unremarkable. Bilateral implants are again noted. CONCLUSION: 1. Negative exam with no evidence of pulmonary embolism. Electronically signed by: Aquilino Hayes MD 01/16/2018 3:55 PM EDT
[2018-01-16 17:03] LABS: TROPONIN I LESS THAN 0.02 NG/ML (0.02-0.05)
[2018-01-16] MEDS: LORazepam 0.5 MG TAB PO PRN (17:19)
[2018-01-16] MEDS: DEXAMETHASONE SOD PHOS 4 MG/ML VIAL IV PUSH SCH ×2 (17:20→23:03)
[2018-01-16 22:10] LABS: TROPONIN I LESS THAN 0.02 NG/ML (0.02-0.05)
[2018-01-16] MEDS: diphenhydrAMINE HCL 50 MG/ML VIAL IV PUSH PRN (23:04)
[2018-01-17 00:17] VITALS: BP 120/61; PULSE 83; RESP 16; TEMP 98.6; O2SAT 96
[2018-01-17] MEDS: LORazepam 0.5 MG TAB PO PRN (01:53)
[2018-01-17 03:27] VITALS: BP 120/74; PULSE 81; RESP 16; TEMP 97.9; O2SAT 92
[2018-01-17 04:00] VITALS: PULSE 76
[2018-01-17] MEDS: HYDROmorphone HCL PF 0.5 MG/0.5 ML SYRINGE IV PUSH PRN ×2 (04:09→07:44)
[2018-01-17] MEDS ORDERED: LEVOTHYROXINE SODIUM 112 MCG TAB PO SCH (06:00)
[2018-01-17] MEDS: DEXAMETHASONE SOD PHOS 4 MG/ML VIAL IV PUSH SCH ×2 (06:40→11:21)
[2018-01-17 07:59] VITALS: BP 173/84; PULSE 86; RESP 20; TEMP 98.8; O2SAT 98
[2018-01-17 08:05] VITALS: PULSE 85
--- NOTE | 2018-01-17 08:14 | PD.CARD.PN ---
Subjective Subjective Remarks Continues to report chest pain, made worse with deep breathing. States " able to determine if Decadron helped with discomfort, it's still there." Requesting further testing to rule out mold and fungal infections, as a cause for her pain. Specifically a PCR lab study, surveillance system monitor physician, and infectious disease consult before discharge and for us (Dr. Strickland and myself) not to have "tunnel vision focusing only on the heart." Objective Medications Current Medications Medications (Trade) Dose Ordered Sig/[place] Route Start Time Stop Time Status Last Admin (NS Flush) 2 ml UNSCH PRN IVF 01/16/18 09:45 01/16/18 09:49 (Decadron Inj) 4 mg Q6HR IV PUSH 01/16/18 18:00 01/17/18 06:40 (Dilaudid Pf Inj) 0.5 mg Q4H PRN IV PUSH 01/16/18 14:15 01/17/18 07:44 (Tylenol) 500 mg Q4H PRN PO 01/16/18 14:15 ([place] 7.5-325 Mg) 1 tab Q4H PRN PO 01/16/18 14:15 (Aspirin) 325 mg DAILY PO 01/17/18 09:00 01/17/18 07:43 (Synthroid) 112 mcg DAILY@0600 PO 01/17/18 06:00 01/17/18 06:36 (Zofran Odt) 4 mg Q4H PRN PO 01/16/18 15:15 (Ativan) 0.5 mg Q8H PRN PO 01/16/18 16:30 01/17/18 01:53 (Benadryl Inj) 25 mg Q6H PRN IV PUSH 01/16/18 16:30 01/16/18 23:04 Vital Signs / I&O Vital Signs Date Time Temp Pulse Resp B/P (MAP) Pulse Ox O2 Delivery O2 Flow Rate FiO2 01/17/18 08:05 85 01/17/18 07:59 98.8 86 20 173/84 (113) 98 01/17/18 04:00 76 01/17/18 03:27 97.9 81 16 120/74 (89) 92 01/17/18 00:17 98.6 83 16 120/61 (80) 96 01/16/18 21:19 98.6 90 18 135/83 (100) 95 01/16/18 21:19 95 21 01/16/18 16:00 97.2 98 20 120/66 (84) 97 01/16/18 15:53 96.9 71 20 158/93 (114) 97 01/16/18 15:17 01/16/18 13:13 80 20 130/76 (94) 96 Room Air 01/16/18 09:03 77 20 156/74 (101) Room Air 01/16/18 08:51 77 20 172/98 (122) 98 Room Air 01/16/18 08:41 98.9 100 20 185/104 (131) 99 I/O 01/16/18 01/16/18 01/16/18 01/17/18 01/17/18 01/17/18 07:00 15:00 23:00 07:00 15:00 23:00 Intake Total 1200 ml Balance 1200 ml Intake Oral 1200 ml Physical Exam GENERAL: Alert WN, WD, sitting in bed, with cosmetic makeup applied, hair completed manicured in no acute distress HEAD: NC, AT CV: RRR, without murmur, rub, gallop, no JVD, S1-S2 no S3-S4. Chest wall nontender with palpation. RESP: Clear lungs throughout bilateral, no crackles, wheeze, rhonchi, symmetrical chest rise, nonlabored, able to speak in full sentences MS: Normal tone x4 extremities, no obvious deformities, full range of motion NEURO: CN II through CN XII grossly intact, motor strength 5/5 PSYCH: A+O x3, anxious affect, appropriate speech, questionable insight and judgment in relation to demanding behavior SKIN: Normal turgor, normal texture Laboratory Laboratory Tests Test 01/16/18 09:45 01/16/18 12:37 01/16/18 15:50 01/16/18 21:14 White Blood Count 5.9 TH/MM3 Red Blood Count 4.51 MIL/MM3 Hemoglobin 13.8 GM/DL Hematocrit 39.5 % Mean Corpuscular Volume 87.7 FL Mean Corpuscular Hemoglobin 30.5 PG Mean Corpuscular Hemoglobin Concent 34.8 % Red Cell Distribution Width 13.1 % Platelet Count 369 TH/MM3 Mean Platelet Volume 7.7 FL Neutrophils (%) (Auto) 61.0 % Lymphocytes (%) (Auto) 26.8 % Monocytes (%) (Auto) 9.1 % Eosinophils (%) (Auto) 1.8 % Basophils (%) (Auto) 1.3 % Neutrophils # (Auto) 3.6 TH/MM3 Lymphocytes # (Auto) 1.6 TH/MM3 Monocytes # (Auto) 0.5 TH/MM3 Eosinophils # (Auto) 0.1 TH/MM3 Basophils # (Auto) 0.1 TH/MM3 CBC Comment DIFF FINAL Differential Comment Prothrombin Time 10.6 SEC Prothromb Time International Ratio 1.0 RATIO Activated Partial Thromboplast Time 26.1 SEC Blood Urea Nitrogen 18 MG/DL Creatinine 0.76 MG/DL Random Glucose 88 MG/DL Calcium Level 9.2 MG/DL Magnesium Level 2.0 MG/DL Sodium Level 137 MEQ/L Potassium Level 5.0 MEQ/L Chloride Level 103 MEQ/L Carbon Dioxide Level 23.2 MEQ/L Anion Gap 11 MEQ/L Estimat Glomerular Filtration Rate 79 ML/MIN Total Creatine Kinase 168 U/L 89 U/L 79 U/L 77 U/L Creatine Kinase MB 1.0 NG/ML Troponin I LESS THAN 0.02 NG/ML LESS THAN 0.02 NG/ML LESS THAN 0.02 NG/ML LESS THAN 0.02 NG/ML Thyroid Stimulating Hormone 3rd Gen 9.800 uIU/ML Imaging Last 24 hours Impressions Chest X-Ray 01/16/18 0940 Signed Impressions: CONCLUSION: No acute cardiopulmonary disease. Assessment and Plan Assessment and Plan #1 Atypical chest pain-continues to report chest pain. Discussed case with Dr. Strickland. While discomfort atypical for cardiac discomfort, due to risk factors and patients overall concern proceed with Lexiscan this morning. Patient agreeable to plan of care. In regards to patient's request on further laboratory studies, surveillance system monitor and infectious disease consult will be discussed with Dr. Strickland, however further testing she is requesting can be managed by her PCP. Ronel Hay Jan 17, 2018 08:13
[2018-01-17] MEDS ORDERED: ASPIRIN 325 MG TAB PO SCH (09:00)
[2018-01-17] MEDS ORDERED: REGADENOSON INJ 0.4 MG/5 ML SYR ONE (10:29)
--- NOTE | 2018-01-17 11:16 | RADRPT ---
EXAM DATE: 01/17/2018 11:09 AM EDT AGE/SEX: 57 years / Female INDICATIONS:Angina. . Chest pain. CLINICAL DATA: This is the patient's initial encounter. Patient reports that signs and symptoms have been present for 1 day and indicates a pain score of 2/10. MEDICAL/SURGICAL HISTORY: Hypothyroidism. Hysterectomy. Discectomy, cervical. COMPARISON: No prior [place] exams available for comparison. DOSE: 8.7 mCi Tc 99m Myoview at rest 25.4 mCi [id number] at stress 0.4 mg Lexiscan STRESS SYMPTOMS: Chest pain. EJECTION FRACTION: >70 % TECHNIQUE: The patient underwent pharmacologic stress with infusion of prescribed dose. Continuous ECG tracing was monitored during stress. Gated SPECT imaging was performed after stress and conventi onal SPECT imaging was performed at rest. The examination was performed on a SPECT/CT scanner, both attenuation and non-corrected datasets were reviewed. FINDINGS: Distribution: The maximum perfused segment at stress is in the inferior wall. Perfusion Study: The pattern of perfusion at stress is within normal limits. Gated Study: There are intact wall motion and wall thickening without hypokinetic or dyskinetic segm ents. The ejection fraction is calculated at >70%. RISK CATEGORY: Low (<1% Annual Motality Rate) CONCLUSION: 1. No reversible perfusion defect to indicate stress-induced myocardial ischemia identified. Electronically signed by: Bigg Flaherty MD 01/17/2018 11:15 AM EDT
[2018-01-17] MEDS: diphenhydrAMINE HCL 50 MG/ML VIAL IV PUSH PRN (11:21)
[2018-01-17] MEDS ORDERED: MEDR4PAK PO (11:28)
--- NOTE | 2018-01-17 11:29 | HHI.DCPOC ---
Discharge Care Plan Diagnosis: (1) Pericarditis Goals to Promote Your Health * To prevent worsening of your condition and complications * To maintain your health at the optimal level Directions to Meet Your Goals Take your medications as prescribed Follow your dietary instruction Follow activity as directed Keep your appointments as scheduled Take your immunizations and boosters as scheduled If your symptoms worsen call your PCP, if no PCP go to Urgent Care Center or Emergency Room Smoking is Dangerous to Your Health. Avoid second hand smoke Call the 24-hour hour crisis hotline for domestic abuse at Ronel Hay Jan 17, 2018 11:29
--- NOTE | 2018-01-17 13:12 | TR ---
Date Performed: 01/17/2018 Time Performed: 10:24:26 DOCTOR: Julio C Strickland DRUG LIST: CLINICAL HISTORY: CHEST PAIN REASON FOR TEST: CHEST PAIN REASON FOR ENDING: OBSERVATION: CONCLUSION: COMMENTS: Lexiscan stress test was performed under standard four minute protocol. Radionuclide was injected one minute prior to ending the test. No electrocardiographic abormalities were present t o suggest ischemia. Nuclear imaging and interpretation are pending.
--- NOTE | 2018-01-17 13:21 | EKG ---
Date Performed: 01/16/2018 Time Performed: 16:05:36 PTAGE: 57 years EKG: Sinus rhythm NORMAL ECG PREVIOUS TRACING : 01/16/2018 12.27 Since previous tracing, no significant change noted DOCTOR: Julio C Strickland Interpretating Date/Time 01/17/2018 13:19:43
--- NOTE | 2018-01-17 13:22 | EKG ---
Date Performed: 01/16/2018 Time Performed: 12:27:36 PTAGE: 57 years EKG: Sinus rhythm WITH SINUS ARRHYTHMIA NORMAL ECG PREVIOUS TRACING : 01/16/2018 08.48 Since previous tracing, no significant change noted DOCTOR: Julio C Strickland Interpretating Date/Time 01/17/2018 13:20:34
== END 2018-01-17 13:09 | disposition home or self-care (01) ==
LOC: NEPE 08:39 → NEDA 12:12 → NEPHCDU 15:30
DX: R07.89 Other chest pain (principal); I31.9 Disease of pericardium, unspecified; I48.91 Unspecified atrial fibrillation; I49.9 Cardiac arrhythmia, unspecified; E78.5 Hyperlipidemia, unspecified; E03.9 Hypothyroidism, unspecified; L30.9 Dermatitis, unspecified; Z79.899 Other long term (current) drug therapy; Z98.1 Arthrodesis status; Z82.3 Family history of stroke
CPT/HCPCS: 71045; 71275; 78452; 80048; 82550; 82552; 83735; 84443; 84484; 85025; 85610; 85730; 93005; 93017; 96374; 96375; 96376; 99285; A9502; G0378; J1100; J1170; J1200; J2270; J2785; Q9967

== ENCOUNTER 2018-01-20 15:01 | Emergency (ER) | payer BC ==
[~2018-01-20] VITALS: Ht 167.6 cm; Wt 68.0 kg
[~2018-01-20 15:01] MED LIST changes: -ASPI81TA23 PO; +ESTR0.5T PO; +MEDR4PAK PO
[2018-01-20 15:44] VITALS: BP 160/93; PULSE 97; RESP 18; TEMP 98.5; O2SAT 97
--- NOTE | 2018-01-20 16:59 | RADRPT ---
EXAM DATE: 01/20/2018 4:07 PM EDT AGE/SEX: 57 years / Female INDICATIONS: Chest pain CLINICAL DATA: This is the patient's sequela encounter. Patient reports that signs and symptoms have been present for 1 day and indicates a pain score of 7/10. MEDICAL/SURGICAL HISTORY: . Pericarditis, Hypothyroidism. Hysterectomy. . Discectomy, cervic al COMPARISON: No prior [place] exams available for comparison. FINDINGS: PA and lateral views of the chest demonstrate the lungs to be symmetrically aerated without evidence of mass, infiltrate or effusion. The cardiomediastinal contours are unremarkable. Osseous structures are intact. CONCLUSION: No acute cardiopulmonary process. Electronically signed by: Denis Pugh MD 01/20/2018 4:58 PM EDT
[2018-01-20 18:51] VITALS: BP 147/77; PULSE 75; RESP 18; O2SAT 99
--- NOTE | 2018-01-20 19:07 | PD ---
HPI Chief Complaint: Chest Pain Time Seen by Provider: 18:43 Travel History International Travel<30 days: No Contact w/Intl Traveler<30days: No Traveled to known affect area: No History of Present Illness HPI 57-year-old female with no significant medical history returns to the emergency department for evaluation of the chest pain, substernal in nature that radiates across her chest. Patient states it began this morning around 10 AM and has persisted throughout the day. Patient reports a recent hospitalization overnight for the same symptoms. At that time, patient had CTA, stress test, chest x-ray, lab work was negative. She tells me that she was given Decadron IV and this helped her pain to feel better however since discharge she has not had any steroids and she began having the pain again. She has mild shortness of breath but the pain is worse with deep expiration. She has had no fever chills. No cough or chest congestion. No other symptoms to report at this time. PFSH Past Medical History ADD: Yes Arthritis: No Atrial Fibrillation: Yes (with epi dosing DUE TO LATEX ALLERGY ANAPHALAXIS) Autoimmune Disease: Yes Cancer: No Cardiovascular Problems: No Diabetes: No Endocrine: Yes (hypothyroidism) Gastrointestinal Disorders: No Genitourinary: No Immune Disorder: No Musculoskeletal: Yes (kicked by horse leading to c2-c4 fusion) Neurologic: No Psychiatric: No Reproductive: No Respiratory: No Integumentary: Yes (ECZEMA) Thyroid Disease: Yes (HYPO) ?: Not Menopausal: Yes Past Surgical History Abdominal Surgery: Yes (appendectomy) Appendectomy: Yes Gynecologic Surgery: Yes ( 2008 hysterectomy) Hysterectomy: Yes (TOTAL) Neurologic Surgery: Yes (c2-4 fusion in 2004) Other Surgery: Yes (spinal fusion, cyst removal from right breast 2013) Social History Alcohol Use: Yes ("COUPLE TIMES PER WEEK") Tobacco Use: No (used to vap) Substance Use: No Allergies-Medications (Allergen,Severity, Reaction): Coded Allergies: latex (Unverified Allergy, Severe, 01/20/18) metoclopramide (Unverified Allergy, Severe, 01/20/18) prochlorperazine (Unverified Allergy, Severe, 01/20/18) ondansetron (Unverified Adverse Reaction, Unknown, Headache, 01/20/18) Reported Meds & Prescriptions Reported Meds & Active Scripts Active Medrol Dosepak (Methylprednisolone) 4 Mg Dspk 4 Mg PO DIRECTED Per Pharmacist direction Reported Estradiol 0.5 Mg Tab 0.5 Mg PO DAILY Levothyroxine (Levothyroxine Sodium) 112 Mcg Tab 112 Mcg PO DAILY Provigil (Modafinil) 200 Mg Tab 200 Mg PO DIRECTED Review of Systems Except as stated in HPI: all other systems reviewed are Neg Physical Exam Narrative GENERAL: Well-nourished female patient, in no acute distress SKIN: Focused skin assessment warm/dry. HEAD: Atraumatic. Normocephalic. EYES: Pupils equal and round. No scleral icterus. No injection or drainage. ENT: No nasal bleeding or discharge. Mucous membranes pink and moist. NECK: Trachea midline. No JVD. CARDIOVASCULAR: Elevated rate and rhythm. RESPIRATORY: No accessory muscle use. Clear to auscultation. Breath sounds equal bilaterally. No tenderness elicited palpation of the thoracic cage. Even respirations. No crepitus. GASTROINTESTINAL: Abdomen soft, non-tender, nondistended. Hepatic and splenic margins not palpable. MUSCULOSKELETAL: No obvious deformities. No clubbing. No cyanosis. No edema. NEUROLOGICAL: Awake and alert. No obvious cranial nerve deficits. Motor grossly within normal limits. Normal speech. PSYCHIATRIC: Appropriate mood and affect; insight and judgment normal. Data Data Last Documented VS Vital Signs Date Time Temp Pulse Resp B/P (MAP) Pulse Ox O2 Delivery O2 Flow Rate FiO2 01/20/18 18:51 75 18 147/77 (100) 99 Room Air 01/20/18 15:44 98.5 Orders Orders Electrocardiogram (01/20/18 15:48) Complete Blood Count With Diff (01/20/18 15:48) Basic Metabolic Panel (Bmp) (01/20/18 15:48) Ckmb (Isoenzyme) Profile (01/20/18 15:48) Troponin I (01/20/18 15:48) Chest, Pa & Lat (01/20/18 15:48) Iv Access Insert/Monitor (01/20/18 19:25) Dexamethasone Inj (Decadron Inj) (01/20/18 19:30) Troponin I (01/20/18 21:02) Labs Laboratory Tests Test 01/20/18 18:34 01/20/18 20:10 01/20/18 20:20 Blood Urea Nitrogen 15 MG/DL Creatinine 0.73 MG/DL Random Glucose 100 MG/DL Calcium Level 9.1 MG/DL Sodium Level 136 MEQ/L Potassium Level 3.8 MEQ/L Chloride Level 103 MEQ/L Carbon Dioxide Level 19.0 MEQ/L Anion Gap 14 MEQ/L Estimat Glomerular Filtration Rate 83 ML/MIN Total Creatine Kinase 55 U/L Troponin I LESS THAN 0.02 NG/ML LESS THAN 0.02 NG/ML White Blood Count 8.5 TH/MM3 Red Blood Count 4.58 MIL/MM3 Hemoglobin 13.7 GM/DL Hematocrit 40.7 % Mean Corpuscular Volume 88.8 FL Mean Corpuscular Hemoglobin 29.8 PG Mean Corpuscular Hemoglobin Concent 33.6 % Red Cell Distribution Width 13.0 % Platelet Count 367 TH/MM3 Mean Platelet Volume 7.8 FL Neutrophils (%) (Auto) 71.8 % Lymphocytes (%) (Auto) 21.7 % Monocytes (%) (Auto) 5.6 % Eosinophils (%) (Auto) 0.2 % Basophils (%) (Auto) 0.7 % Neutrophils # (Auto) 6.1 TH/MM3 Lymphocytes # (Auto) 1.9 TH/MM3 Monocytes # (Auto) 0.5 TH/MM3 Eosinophils # (Auto) 0.0 TH/MM3 Basophils # (Auto) 0.1 TH/MM3 CBC Comment DIFF FINAL Differential Comment MDM Medical Decision Making Medical Screen Exam Complete: Yes Emergency Medical Condition: Yes Medical Record Reviewed: Yes Differential Diagnosis Pleuritic pain versus chest wall pain versus less likely ACS versus pericarditis Narrative Course 57-year-old female presents emergency department for evaluation. Patient appears without distress. Vital signs are stable. Patient had a recent cardiac workup to include stress test, CTA, chest x-ray, and labs. She was discharged home January 17 to follow-up outpatient. EKG is without acute concern. Laboratory Tests Test 01/20/18 18:34 01/20/18 20:10 01/20/18 20:20 Blood Urea Nitrogen 15 MG/DL Creatinine 0.73 MG/DL Random Glucose 100 MG/DL Calcium Level 9.1 MG/DL Sodium Level 136 MEQ/L Potassium Level 3.8 MEQ/L Chloride Level 103 MEQ/L Carbon Dioxide Level 19.0 MEQ/L Anion Gap 14 MEQ/L Estimat Glomerular Filtration Rate 83 ML/MIN Total Creatine Kinase 55 U/L White Blood Count 8.5 TH/MM3 Red Blood Count 4.58 MIL/MM3 Hemoglobin 13.7 GM/DL Hematocrit 40.7 % Mean Corpuscular Volume 88.8 FL Mean Corpuscular Hemoglobin 29.8 PG Mean Corpuscular Hemoglobin Concent 33.6 % Red Cell Distribution Width 13.0 % Platelet Count 367 TH/MM3 Mean Platelet Volume 7.8 FL Neutrophils (%) (Auto) 71.8 % Lymphocytes (%) (Auto) 21.7 % Monocytes (%) (Auto) 5.6 % Eosinophils (%) (Auto) 0.2 % Basophils (%) (Auto) 0.7 % Neutrophils # (Auto) 6.1 TH/MM3 Lymphocytes # (Auto) 1.9 TH/MM3 Monocytes # (Auto) 0.5 TH/MM3 Eosinophils # (Auto) 0.0 TH/MM3 Basophils # (Auto) 0.1 TH/MM3 CBC Comment DIFF FINAL Differential Comment Troponin I LESS THAN 0.02 NG/ML Last Impressions Chest X-Ray 01/20/18 1548 Signed Impressions: CONCLUSION: No acute cardiopulmonary process. Patient is given IV Decadron. I discussed the patient with my attending physician. We will do a delta troponin and pending negative result, patient will be discharged home to follow-up with a primary care provider. Diagnosis Primary Impression: Chest pain, atypical Referrals: [employer] Primary Care Physician Patient Instructions: Chest Pain (ED), General Instructions Additional Instructions: Follow-up with a primary care provider Ibuprofen as directed on the package as needed for pain Return immediately with acute worsening of symptoms Med/Other Pt SpecificInfo: No Change to Meds Disposition: 01 DISCHARGE HOME Condition: Stable Micaela Lujan Jan 20, 2018 19:07
[2018-01-20] MEDS ORDERED: DEXAMETHASONE SOD PHOS 4 MG/ML VIAL IV PUSH ONE (19:30)
[2018-01-20 20:23] LABS: BLOOD UREA NITROGEN 15 MG/DL (7-18); CALCIUM 9.1 MG/DL (8.5-10.1); CHLORIDE 103 MEQ/L (98-107); CREATININE 0.73 MG/DL (0.50-1.00); GLOMERULAR FILTRATION RATE 83 ML/MIN (>89); GLUCOSE,RANDOM 100 MG/DL (74-106); SODIUM (NA) 136 MEQ/L (136-145)
[2018-01-20 20:27] LABS: TROPONIN I LESS THAN 0.02 NG/ML (0.02-0.05)
[2018-01-20 20:50] LABS: AUTOMATED NEUTROPHIL # 6.1 TH/MM3 (1.8-7.7); BASOPHIL # 0.1 TH/MM3 (0-0.2); BASOPHIL % 0.7 % (0.0-2.0); EOSINOPHIL % 0.2 % (0.0-4.0); HEMATOCRIT 40.7 % (35.0-46.0); HEMOGLOBIN 13.7 GM/DL (11.6-15.3); LYMPH % 21.7 % (9.0-44.0); LYMPHOCYTE # 1.9 TH/MM3 (1.0-4.8); MEAN CELL VOLUME 88.8 FL (80.0-100.0); MEAN CORPUSCULAR HEMOGLOBIN 29.8 PG (27.0-34.0); MEAN CORPUSCULAR HGB CONC 33.6 % (32.0-36.0); MEAN PLATELET VOLUME 7.8 FL (7.0-11.0); MONO % 5.6 % (0.0-8.0); MONOCYTE # 0.5 TH/MM3 (0-0.9); NEUT % 71.8 % (16.0-70.0); PLATELET COUNT 367 TH/MM3 (150-450); RED BLOOD COUNT 4.58 MIL/MM3 (4.00-5.30); WHITE BLOOD COUNT 8.5 TH/MM3 (4.0-11.0)
--- NOTE | 2018-01-21 15:57 | EKG ---
Date Performed: 01/20/2018 Time Performed: 16:04:31 PTAGE: 57 years EKG: Sinus rhythm NORMAL ECG Since the PREVIOUS TRACING , no significant change noted PREVIOUS TRACIN01/16/2018 16.05 DOCTOR: Tanya Patel Interpretating Date/Time 01/21/2018 15:57:13
== END 2018-01-20 22:28 | disposition home or self-care (01) ==
LOC: NEPE 15:01
DX: R07.89 Other chest pain (principal); E03.9 Hypothyroidism, unspecified
CPT/HCPCS: 71046; 80048; 82550; 84484; 85025; 93005; 96374; 99285; J1100